=== PATIENT | female | born 1975 | race Caucasian/White ===

== ENCOUNTER 2023-12-06 19:02 | Emergency (ER) | payer BC, SELFPAY ==
[2023-12-06 19:06] VITALS: BP 125/99; PULSE 70; RESP 16; TEMP 36.7; O2SAT 99; BMI 22.1
--- NOTE | 2023-12-06 19:21 | ED.UPPEXIN1 ---
HPI - Extremity Injury (Upper) General Chief Complaint: Extremity Injury, Upper Stated Complaint: UE INJURY Time Seen by Provider: 12/06/23 19:19 Source: patient Mode of arrival: walk-in Limitations: no limitations History of Present Illness HPI narrative: carrying boxes and loss her balance . fell striking her right forearm on the corner of the door. Denies other injury. complains of pain. No associated numbness or weakness MD complaint: injury to: Reports right and forearm Related Data Allergies Allergy/AdvReac Type Severity Reaction Status Date / Time No Known Drug Allergies Allergy Verified 12/06/23 19:11 Review of Systems ROS Status of ROS 10 or more systems reviewed and unremarkable except as noted in history and below Exam Constitutional Vital Signs, click to edit/add: Last Vital Signs Temp 98.1 F 12/06/23 19:06 Pulse 70 12/06/23 19:06 Resp 16 12/06/23 19:06 BP 125/99 H 12/06/23 19:06 Pulse Ox 99 12/06/23 19:06 O2 Del Method Room Air 12/06/23 19:06 Common normals: no apparent distress, average body habitus, oriented x3, no limitations, healthy appearing, alert and well nourished [facility] Common normals: normocephalic and head/scalp atraumatic Eye Common normals: PERRL, EOMs intact bilaterally and conjunctivae normal Neck & C-Spine Common normals: full ROM Respiratory Common normals: normal respiratory effort, no retractions and no use of accessory muscles Cardio Common normals: S1 normal heart sound and S2 normal heart sound Extremity Other: focal swelling proximal R FA Neuro Common normals: oriented x3, CN's II-XII intact bilaterally, moves all extremities and no focal motor deficits Psych Appearance: grossly normal Course Vital Signs Vital signs: Vital Signs Temperature 98.1 F 12/06/23 19:06 Pulse Rate 70 12/06/23 19:06 Respiratory Rate 16 12/06/23 19:06 Blood Pressure 125/99 H 12/06/23 19:06 Pulse Oximetry 99 12/06/23 19:06 Oxygen Delivery Method Room Air 12/06/23 19:06 Temperature 98.1 F 12/06/23 19:06 Pulse Rate 70 12/06/23 19:06 Respiratory Rate 16 12/06/23 19:06 Blood Pressure 125/99 H 12/06/23 19:06 Pulse Oximetry 99 12/06/23 19:06 Oxygen Delivery Method Room Air 12/06/23 19:06 MDM - Extremity Injury (Upper) MDM Narrative Medical decision making narrative: patient fell forward striking her proximal right FA on the door. Presents with focal hematoma proximal right forearm near elbow. Elbow exam grossly normal but she complained of pain. Xray of forearm and elbow neg. Patient informed of the above and discharged home. Work note provided for [facility] Discharge Plan Discharge Stand Alone Forms: Portal Instructions Chief Complaint: Extremity Injury, Upper Clinical Impression: Contusion of forearm, right Patient Disposition: Home, Self-Care Instructions: Contusion in Adults (ED) Additional Instructions: continue ice and motrin or similar for pain. Follow up with your doctor in 2-3 days for recheck Referrals: Physician,Non-Staff, MD [Primary Care Provider] - 1 week
--- NOTE | 2023-12-06 19:24 | XR_ITS ---
The [place] [id number] Patient Name: CONNOR RUANO MRN: [id number] date: 1975 Sex: F Assigned Patient Location: ER Current Patient Location: ED.MAIN Accession/Order Number: [id number] Exam Date: 12/06/2023 19:30 Report Date: 12/06/2023 20:34 At the request of: NABOR HURTADO Procedure: XR elbow RT min 3V EXAM: XR elbow RT min 3V HISTORY: The patient is a 48-year-old female, injury COMPARISON: None. FINDINGS: The right elbow is radiographically negative with no evidence of fracture, dislocation, fat pad elevation, or other osseous or articular abnormalities XR/XR elbow RT min 3V IMPRESSION: Negative. Electronically authenticated by: GAGE MAK Date: 12/06/2023 20:34
--- NOTE | 2023-12-06 19:24 | XR_ITS ---
The [address] [address] Patient Name: CONNOR RUANO MRN: [id number] date: 1975 Sex: F Assigned Patient Location: ER Current Patient Location: ER Accession/Order Number: [id number] Exam Date: 12/06/2023 19:30 Report Date: 12/06/2023 20:35 At the request of: NABOR HURTADO Procedure: XR forearm RT 2V EXAM: XR forearm RT 2V HISTORY: The patient is a 48-year-old female, fall COMPARISON: None. FINDINGS: The right radius and ulna are radiographically negative with no evidence of fracture, cortical lucencies, or other osseous abnormalities. The wrist joint is grossly maintained. The lateral view demonstrates focal fullness of the soft tissues dorsal to the proximal ulna. XR/XR forearm RT 2V IMPRESSION: Negative right radius/ulna. Electronically authenticated by: GAGE MAK Date: 12/06/2023 20:35
[2023-12-06 20:45] VITALS: BP 130/84; PULSE 80; RESP 16; O2SAT 99
[2023-12-06] MEDS: IBUPROFEN 400 MG TABLET 800 MG PO (20:45)
== END 2023-12-06 20:48 | disposition home or self-care (01) ==
PROVIDERS: Emergency Provider Internal Medicine
DX: S50.11XA Contusion of right forearm, initial encounter (principal); W19.XXXA Unspecified fall, initial encounter
CPT/HCPCS: 73080; 73090; 99284

== ENCOUNTER 2023-12-12 10:03 | Outpatient (OUT) | payer BC, SELFPAY ==
--- NOTE | 2023-12-12 10:09 | XR_ITS ---
The [address] [address] Patient Name: CONNOR RUANO MRN: [id number] date: 1975 Sex: F Assigned Patient Location: [facility] Current Patient Location: [facility] Accession/Order Number: [id number] Exam Date: 12/12/2023 10:13 Report Date: 12/12/2023 11:04 At the request of: BILL CLEMENT Procedure: XR forearm RT 2V PROCEDURE: XR forearm RT 2V DATE: 12/12/2023 9:13 AM CDT COMPARISONS: 12/06/2023 CLINICAL INDICATION: Right Arm Injury S49.91XA FINDINGS: There is no evidence of fractures or other osseous abnormalities. XR/XR forearm RT 2V IMPRESSION: Right forearm radiographs show no evidence of abnormalities. Electronically authenticated by: MARI SOARES Date: 12/12/2023 11:04
--- NOTE | 2023-12-12 10:09 | XR_ITS ---
The [address] [address] Patient Name: CONNOR RUANO MRN: [id number] date: 1975 Sex: F Assigned Patient Location: [facility] Current Patient Location: [facility] Accession/Order Number: [id number] Exam Date: 12/12/2023 10:13 Report Date: 12/12/2023 11:05 At the request of: BILL CLEMENT Procedure: XR elbow RT min 3V PROCEDURE: XR elbow RT min 3V DATE: 12/12/2023 9:13 AM CDT COMPARISONS: None CLINICAL INDICATION: Right Arm Injury S49.91XA FINDINGS: There is no evidence of fractures or other osseous abnormalities. No evidence of right elbow joint effusion. XR/XR elbow RT min 3V IMPRESSION: Right elbow radiographs show no evidence of abnormalities. Electronically authenticated by: MARI SOARES Date: 12/12/2023 11:05
--- OUTSIDE RECORDS SUMMARY | 2023-12-12 10:14 | XMS_ITS | CCD ---
Author Name Unknown Address [facility] [address] [place] [id number] Organization [facility] Care Team Providers Care Fish Hatchery Man Name Role Phone Dianna Clement Primary Care Provider Fidencio Archibald Attending Provider DIANNA CLEMENT Primary Care Unavailable RADHA, DR AYERS Admitting Unavailable RADHA, DR AYERS Attending Unavailable RADHA, DR AYERS Consulting Unavailable ANDREUBPALMER REESE Consulting Unavailable RADHA, DR AYERS Procedure Practitioner Unavailab BRETT Medel Consulting Unavailable YANDEL CHÁVEZ Attending Unavailable YANDEL CHÁVEZ Admitting Unavailable [place], DR DARRICK Gonzalez Consulting Unavailable YANDEL CHÁVEZ Consulting Unavailable RADHA, DR AYERS Admitting Unavailable RADHA, DR AYERS Attending Unavailable RADHA, DR AYERS Consulting Unavailable RADHA, DR AYERS Admitting Unavailable RADHA, DR AYERS Attending Unavailable RADHA, DR AYERS Consulting Unavailable RADHA, DR AYERS Admitting Unavailable DIANNA CLEMENT Primary Care Unavailable RADHA, DR AYERS Attending Unavailable RADHA, DR AYERS Admitting Unavailable RADHA, DR AYERS Attending Unavailable RADHA, DR AYERS Consulting Unavailable Dianna Clement Unavailable Racquel CHILDREN'S PROGRAM COORDINATOR - CLAIM INSPECTORDianna Primary Care Provid er HELEN SOLIS Referring Unavailable DIANNA CLEMENT Primary Care Unavailable DIANNA CLEMENT Primary Care Unavailable HELEN SOLIS Admitting Unavailable HELEN SOLIS Attending Unavailable Medications Current Medications Medication Drug Class(es) Dates Sig (Normalized) Sig (Original) acetaminophen 325 mg oral tablet (3 sources) Start: 01-24-2023 acetaminophen (TYLENOL) tablet 650 mg take 1 tablet by maciel th every six hours as needed for pain acetaminophen (TYLENOL) 500 MG tablet Ta ke 1 tablet by mouth every 6 hours as needed for Pain 0 Suspended Tylenol Active acetaminophen 325 mg / HYDROcodone bitartrate 5 mg oral tablet (2 sources) Opioid Agonist Start: 01-24-2023 End: 01-29-2023 HYDROcodone-acetaminophen (NORCO) 5-325 MG per tablet Indications: S/P arthroscopy of left knee Take 1-2 tablets by mouth every 6 hours as needed for Pain for up to 5 days. Max Daily Amount: 8 tablets 30 tablet 0 01/24/2023 01/29/2023 Active Start: 01-24-2023 HYDROcodone-ac etaminophen (NORCO) 5-325 MG per tablet 1 tablet calcium chloride 0.0014 meq/ml / potassium chloride 0.004 meq/ml / sodium chloride 0.103 meq/ml / sodium lactate 0.028 meq/ml injectable solution (1 source) Start: 01-24-2023 lactated ringers IV soln infusion cyclobenzaprine hydrochloride 5 mg oral tablet (1 source) Muscle Relaxant Start: 10-22-2021 take 1 tablet by mouth every eight hours Cyclobenzaprine HCl 5 MG 1 tablet as needed Orally Three times a day for 10 days Sep, Active ergocalciferol 1.25 mg oral capsule (2 sources) Provitamin D2 Compound Start: 03-11-2020 take 1 capsule by mouth once Vitamin D (Ergocalciferol) 1.25 MG (35056 UT) 1 capsule Orally for 30 day(s) Mar, Active 2 ml fentaNYL 0.05 mg/ml injection (1 source) Opioid Agonist Start: 01-24-2023 fentaNYL (SUBLIMAZE) injection 50 mcg 24 hr ferrous sulfate 142 mg extended release oral tablet (2 sources) Start: 03-11-2020 take 1 tablet by mouth every twenty-fou r hours Slow Fe 142 (45 Fe) MG 1 tablet Orally Once a day for 30 day(s) Mar, Active Folinic-Plus 4-50-2 MG (1 source) Start: 03-11-2020 take 1 tablet by mouth in the morning Folinic-Plus 4-50-2 MG 1 tablet Orally in the morning for 30 days Feb, Active lidocaine 0.05 mg/mg medicated patch (1 source) Antiarrhythmic, Amide Local Anesthetic Lidocaine 5 % (Prior Auth#:[id number]) External for 15 Active methylPREDNISolone 4 mg oral tablet (1 source) Corticosteroid Start: 10-22-2021 methylPREDNISolone 4 MG as directed Orally Once a day for 6 days Sep, Active rOPINIRole 4 mg oral tablet (1 source) Nonergot Dopamine Agonist Start: 05-23-2020 take 1 tablet by mouth once daily at bedtime rOPINIRole HCl 4 MG 1 tablet 1 to 3 hours before bedtime Orally Once a day for 30 day(s) Apr, Active 5 ml sodium chloride 9 mg/ml injection (3 sources) Start: 01-24-2023 sodium chloride flush 0.9 % injection 5-40 mL Start: 01-24-2023 0.9 % sodium c hloride infusion Start: 01-24-2023 sodium chlorid e flush 0.9 % injection 5-40 mL Completed/Discontinued Medications Medication Drug Class(es) Dates Sig (Normalized) Sig (Original) ceFAZolin 2000 mg injection (1 source) Cephalosporin Antibacterial Start: 01-24-2023 End: 01-24-2023 ceFAZolin (ANCEF) 2000 mg in 0.9% sodium chloride 100 mL IVPB dimenhyDRINATE 50 mg oral tablet (1 source) Start: 01-24-2023 End: 01-24-2023 dimenhyDRINATE (DRAMAMINE) tablet 50 mg ibuprofen 200 mg oral capsule (1 source) Nonsteroidal Anti-inflammatory Drug take 1 capsule by mouth every six hours as needed for pain ibuprofen (ADVIL;MOTRIN) 200 MG CAPS capsule Take 1 capsule by mouth every 6 hours as needed for Pain 0 Suspended Problems Active Problems Problem Classification Problem Date Documented Date Episodic/Chronic Anxiety disorders (1 source) Anxiety disorder, unspecified; Translations: [ANXIETY DISORDER UNSPECIFIED] Onset: 2022 Chronic Benign neoplasm of uterus (1 source) Leiomyoma of uterus, unspecified; Translations: [LEIOMYOMA OF UTERUS UNSPECIFIED] Onset: 2022 Episodic Deficiency and other anemia (1 source) Iron deficiency anemia due to blood loss; Translations: [Iron deficiency anemia secondary to blood loss (chronic)] Chronic Menopausal disorders (3 sources) Menorrhagia; Translations: [Excessive bleeding in the premenopausal period] Onset: 10-22-2021 Resolved: 10-22-2021 Chronic Menstrual disorders (10 sources) Excessive and frequent menstruation with regular cycle; Translations: [Dysmenorrhea, unspecified] Onset: 07-01-2021 Chronic Osteoarthritis (1 source) Arthritis of right hip; Translations: [Unilateral primary osteoarthritis, right hip] Chronic Other aftercare (1 source) Other penitentiary (current) drug therapy; Translations: [OTH DIRECTOR OF INFECTION CONTROL CURRENT DRUG THERAPY] Onset: 2022 Episodic Other bone disease and musculoskeletal deformities (1 source) Juvenile osteochondrosis of lower extremity; Translations: [Juvenile osteochondrosis of head of femur [Xtsk-Gzlav-Kjrfeuz], right leg] Chronic Other bone disease and musculoskeletal deformities (1 source) 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], right leg Onset: 10-22-2021 Resolved: 10-22-2021 Chronic Other female genital disorders (1 source) Unspecified dyspareunia; Translations: [UNSPECIFIED DYSPAREUNIA] Onset: 2022 Chronic Other female genital disorders (1 source) Hypertrophy of uterus; Translations: [HYPERTROPHY OF UTERUS] Onset: 2022 Episodic Other hereditary and degenerative nervous system conditions (1 source) Restless legs syndrome; Translations: [RESTLESS LEGS SYNDROME] Onset: 2022 Chronic Other hereditary and degenerative nervous system conditions (1 source) Restless legs; Translations: [Restless legs syndrome] Chronic Other nervous system disorders (1 source) Other chronic pain; Translations: [OTHER CHRONIC PAIN] Onset: 2022 Chronic Other non-traumatic joint disorders (1 source) Pain in unspecified hip; Translations: [PAIN IN UNSPECIFIED HIP] Onset: 2022 Episodic Residual codes; unclassified (1 source) History of arthroscopy of knee joint; Translations: [Other specified postprocedural states] Episodic Residual codes; unclassified (1 source) Other specified postprocedural states; Translations: [Other specified postprocedural states] Onset: 01-24-2023 Episodic Substance-related disorders (1 source) Nicotine dependence, cigarettes, uncomplicated; Translations: [NICOTINE DEPEND CIGARETTES UNCOMP] Onset: 2022 Chronic Unclassified (1 source) CONTACT W/AND (SUSP) EXPOS COVID-19; Translations: [CONTACT W/AND (SUSP) EXPOS COVID-19] Onset: 01-01-2022 Past or Other Problems Problem Classification Problem Date Documented Da te Episodic/Chronic Nonspecific chest pain (1 source) Other chest pain Onset: 10-22-2021 Resolved: 10-22-2021 Episodic Spondylosis; intervertebral disc disorders; other back problems (2 sources) Acute back pain with sciatica; Translations: [Lumbago with sciatica, left side] Episodic Results Test Name Value Interpretation Reference Range Facility OPERATIVE REPORTon 3 OPERATIVE REPORT [address] [id number] OPERATIVE REPORT PATIENT NAME: BEENA RUANO : 1975 MED REC NO: [id number] ROOM: ACCOUNT NO: [id number] ADMIT DATE: 01/24/2023 PROVIDER: Helen Solis DATE OF PROCEDURE: 01/24/2023 PREOPERATIVE DIAGNOSES: 1. Torn medial meniscus. 2. Torn lateral meniscus. 3. Chondromalacia, left knee. POSTOPERATIVE DIAGNOSES: 1. Torn medial meniscus. 2. Torn lateral meniscus. 3. Chondromalacia, left knee. PROCEDURE PERFORMED: Arthroscopy of left knee with: 1. Partial medial meniscectomy. 2. Partial lateral meniscectomy. 3. Chondroplasty. SURGEON: Dr. Helen Solis. ANESTHESIA: General. DESCRIPTION OF PROCEDURE: The patient was brought into the operating room and placed in the supine position on the operating table. General anesthetic was administered. The patient's left lower extremity was prepped with ChloraPrep and draped in a sterile fashion. The patient had received Ancef. Tourniquet was inflated to 300 mmHg. Arthroscope was brought in through an anterolateral portal. Knee was distended with lactated Ringer's solution. Anteromedial portal was then created for instrumentation. The patient was noted to have a torn posterior portion of the medial meniscus and also had chondromalacia involving the weightbearing area of the medial femoral condyle and to a minor extent to the medial tibial plateau. Partial medial meniscectomy was then contoured out good clean contours obtained. The periphery of the meniscus was preserved. The patient had chondromalacia going down throughout about 50% of the weightbearing area of the medial femoral condyle and this was trimmed up appropriately. No full-thickness lesions were noted and some minor trimming was performed on the medial tibial plateau. Notch area examined. The ACL was intact. Lateral compartment and lateral femoral condyle was intact. There was some mild chondromalacia adjacent to the notch area on the lateral tibial plateau, which was easily trimmed up and the patient had morbid degenerative tear of the inner margin of the lateral meniscus. This was trimmed up going into about 20% of the inner margin of the lateral meniscus. Good clean contour was obtained. Patellofemoral joint was then examined. The patient had chondromalacia involving both the patellofemoral groove and the undersurface of patella, more towards the medial side. Chondroplasty was performed with a shaver. This went down through about 50% of thickness of the cartilage involving the patellofemoral groove and similarly went down through 50% of the cartilage involving mainly the central portion and medial facet of the patella. No full-thickness lesions were noted. Partial synovectomy was then carried out through the pouch area. The medial gutter was cleaned up. The arthroscope and shaver were then switched portals and the chondroplasty was completed of the patellofemoral joint and the lateral gutter was cleaned up appropriately. Knee joint was then thoroughly inspected. Knee was then drained. Portal sites were closed with 4-0 nylon interrupted simple sutures. Dressed with an Adaptic, fluff, ABD, Kerlix roll, and ABDIRAHMAN wrap from toe to groin. Tourniquet was released. Toes pinked immediately. The patient was transferred to Recovery in a stable condition. Blood loss minimal. Bussey for discomfort. Return to the office in two weeks. HELEN SOLIS [id number] Doc#: [id number] CC: Normal [facility] Basic Metabolic Panelon 04-2 Anion gap [Moles/Vol] 9 mmol/L 9 - 17 mmol/L [facility] Calcium [Mass/Vol] 9.8 mg/dL 8.6 - 10. 4 mg/dL [facility] Chloride [Moles/Vol] 103 mmol/L 98 - 10 7 mmol/L [facility] CO2 [Moles/Vol] 25 mmol/L 20 - 31 mmol/L [facility] Creatinine [Mass/Vol] 0.86 mg/dL 0.50 - 0.90 mg/dL [facility] GFR/1.73 sq M.predicted MDRD (S/P/Bld) [Vol rate/Area] - PINF [facility] Comment on above: These results are not intended for use in patients <18 years of age. eGFR results are calculated without a race factor using the 2020 CKD-EPI equation. Careful clinical correlation is recommended, particularly when comparing to results calculated using previous equations. The CKD-EPI equation is less accurate in patients with extremes of muscle mass, extra-renal metabolism of creatine, excessive creatine ingestion, or following therapy that affects renal tubular secretion. Glucose [Mass/Vol] 100 mg/dL High 70 - 99 mg/dL [facility] Interpretation and review of laboratory results Abnormal [facility] Potassium [Moles/Vol] 4.3 mmol/L 3.7 - 5.3 mmol/L [facility] Sodium [Moles/Vol] 137 mmol/L 135 - 144 mmol/L [facility] Urea nitrogen [Mass/Vol] 18 mg/dL 6 - 20 mg/dL [facility] Urea nitrogen/Creatinine (Bld) [Mass ratio] 21 High 9 - 20 [facility] Basic Metabolic Profon 01-13 Anion gap [Moles/Vol] 9 mmol/L Normal 9-17 [facility] Comment on above: Performed By: #### B LADAN, CDP #### [facility] [address] [place] [address] Temporary Receptionist: Darrick Amaya MD BUN/CRE Ratio 21 High 9-20 [facility] Comment on above: Performed By: #### B LADAN, CDP #### [facility] [address] [place] [address] Temporary Receptionist: Darrick Amaya MD Calcium [Mass/Vol] 9.8 mg/dL Normal 8.6-10.4 [facility] Comment on above: Performed By: #### B LADAN, CDP #### [facility] [address] [place] [address] Temporary Receptionist: Darrick Amaya MD Chloride [Moles/Vol] 103 mmol/L Normal 98-107 [facility] Comment on above: Performed By: #### B LADAN, CDP #### [facility] [address] [place], [place] [id number] Temporary Receptionist: Darrick Amaya MD CO2 [Moles/Vol] 25 mmol/L Normal 20-31 [facility] Comment on above: Performed By: #### B LADAN, CDP #### [facility] [address] [place] [address] Temporary Receptionist: Darrick Amaya MD Creatinine [Mass/Vol] 0.86 mg/dL Normal 0.50-0.90 [facility] Comment on above: Performed By: #### B LADAN, CDP #### [facility] [address] [place] [address] Temporary Receptionist: Darrick Amaya MD GFR/1.73 sq M.predicted among non-blacks MDRD (S/P/Bld) [Vol rate/Area] mL/min/{1.73_m2} Normal >60 [facility] Comment on above: Result Comment: These results are not intended for use in patients <18 years of age. eGFR results are calculated without a race factor using the 2020 CKD-EPI equation. Careful clinical correlation is recommended, particularly when comparing to results calculated using previous equations. The CKD-EPI equation is less accurate in patients with extremes of muscle mass, extra-renal metabolism of creatine, excessive creatine ingestion, or following therapy that affects renal tubular secretion. Performed By: #### B LADAN, CDP #### [facility] [address] [place] [address] Temporary Receptionist: Darrick Amaya MD Glucose [Mass/Vol] 100 mg/dL High 70-99 [facility] Comment on above: Performed By: #### B MP, CDP #### [facility] [address] [place], [place] [id number] Temporary Receptionist: Darrick Amaya MD Potassium [Moles/Vol] 4.3 mmol/L Normal 3.7-5.3 [facility] Comment on above: Performed By: #### B LADAN, CDP #### [facility] [address] [place], [place] [id number] Temporary Receptionist: Darrick Amaya MD Sodium [Moles/Vol] 137 mmol/L Normal 135-144 [facility] Comment on above: Performed By: #### B LADAN, CDP #### [facility] [address] [place], [place] [id number] Temporary Receptionist: Darrick Amaya MD Urea nitrogen [Mass/Vol] 18 mg/dL Normal 6-20 [facility] Comment on above: Performed By: #### B LADAN, CDP #### [facility] [address] [place], [place] [id number] Temporary Receptionist: Darrick Amaya MD CBC with Auto Differentialon 01-13-2023 Absolute Eos # 0.[address] [facility] Absolute Immature Granulocyte [facility] Absolute Lymph # 1.[address] [facility] Absolute [place] # 0.44 [facility] Basophils (Bld) [#/Vol] 0.04 10*3/uL [facility] Basophils/100 WBC (Bld) 1 % 0 - 2 % [facility] Eosinophils/100 WBC (Bld) 2 % 1 - 4 % [facility] Hematocrit (Bld) [Volume fraction] 44.3 % 36.3 - 47.1 % [facility] Hemoglobin (Bld) [Mass/Vol] 15.0 g/dL 11.9 - 15.1 g/dL [facility] Immature granulocytes/100 WBC (Bld) 0 % 0 [facility] Lymphocytes/100 WBC (Bld) 30 % 24 - 43 % [facility] MCH (RBC) [Entitic mass] 29.9 pg 25.2 - 33.5 pg [facility] MCHC (RBC) [Mass/Vol] 33.9 g/dL 28.4 - 34.8 g/dL [facility] MCV (RBC) [Entitic vol] 88.2 fL 82.6 - 102.9 fL [facility] Monocytes/100 WBC (Bld) 8 % 3 - 12 % [facility] NRBC Automated 0.0 0.0 per 100 WBC [facility] Platelet distribution width (Bld) [Ratio] 12.5 % 11.8 - 14.4 % [facility] Platelet mean volume (Bld) [Entitic vol] 11.6 fL 8.1 - 13.5 fL [facility] Platelets (Bld) [#/Vol] 170 10*3/uL [facility] RBC (Bld) [#/Vol] 5.02 10*6/uL 3.95 - 5.1 1 m/uL [facility] Segmented neutrophils/100 WBC (Bld) 59 % 36 - 65 % [facility] Segs Absolute 3.23 [facility] WBC (Bld) [#/Vol] 5.5 10*3/uL [facility] CBC with Diffon 01-13-2023 Abs. Basophil 0.04 k/uL Normal 0.00-0.20 [facility] Comment on above: Performed By: #### B LADAN, CDP #### [facility] [address] [place] [address] Temporary Receptionist: Darrick Amaya MD Abs.Imm.Granulocyte <0.03 Normal 0.00-0.30 [facility] Comment on above: Performed By: #### B LADAN, CDP #### [facility] [address] [place] [address] Temporary Receptionist: Darrick Amaya MD Abs.Neutrophil (Seg) 3.23 k/uL Normal 1.50-8.10 [facility] Comment on above: Performed By: #### B MP, CDP #### [facility] [address] [place], [facility] Temporary Receptionist: Darrick Amaya MD Basophils/100 WBC (Bld) 1 % Normal 0-2 [facility] Comment on above: Performed By: #### B MP, CDP #### [facility] [address] [place], [facility] Temporary Receptionist: Darrick Amaya MD Eosinophils (Bld) [#/Vol] 0.10 10*3/uL Normal 0.00-0.44 [facility] Comment on above: Performed By: #### B MP, CDP #### [address] [place], [facility] Temporary Receptionist: Darrick Amaya MD Eosinophils/100 WBC (Bld) 2 % Normal 1-4 [facility] Comment on above: Performed By: #### B MP, CDP #### [address] [place], [facility] Temporary Receptionist: Darrick Amaya MD Erythrocyte distribution width (RBC) [Ratio] 12.5 % Normal 11.8-14.4 [facility] Comment on above: Performed By: #### B MP, CDP #### [address] [place], [facility] Temporary Receptionist: Darrick Amaya MD Hematocrit (Bld) [Volume fraction] 44.3 % Normal 36.3-47.1 [facility] Comment on above: Performed By: #### B MP, CDP #### [address] [place], [facility] Temporary Receptionist: Darrick Amaya MD Hemoglobin (Bld) [Mass/Vol] 15.0 g/dL Normal 11.9-15.1 [facility] Comment on above: Performed By: #### B MP, CDP #### [address] [place], [place] [id number] Temporary Receptionist: Darrick Amaya MD Immature granulocytes/100 WBC (Bld) 0 % Normal 0 [facility] Comment on above: Performed By: #### B MP, CDP #### [address] [place], [place] [id number] Temporary Receptionist: Darrick Amaya MD Lymphocytes (Bld) [#/Vol] 1.64 10*3/uL Normal 1.10-3.70 [facility] Comment on above: Performed By: #### B LADAN, CDP #### [address] [place], [place] [id number] Temporary Receptionist: Darrick Amyaa MD Lymphocytes/100 WBC (Bld) 30 % Normal 24-43 [facility] Comment on above: Performed By: #### B LADAN, CDP #### [address] [place], [place] [id number] Temporary Receptionist: Darrick Amaya MD MCH (RBC) [Entitic mass] 29.9 pg Normal 25.2-33.5 [facility] Comment on above: Performed By: #### B LADAN, CDP #### [address] [place], [place] [id number] Temporary Receptionist: Darrick Amaya MD MCHC (RBC) [Mass/Vol] 33.9 g/dL Normal 28.4-34.8 [facility] Comment on above: Performed By: #### B MP, CDP #### [address] [place], [place] [id number] Temporary Receptionist: Darrick Amaya MD MCV (RBC) [Entitic vol] 88.2 fL Normal 82.6-102.9 [facility] Comment on above: Performed By: #### B LADAN, CDP #### [address] [place], [place] [id number] Temporary Receptionist: Darrick Amaya MD Monocytes (Bld) [#/Vol] 0.44 10*3/uL Normal 0.10-1.20 [facility] Comment on above: Performed By: #### B LADAN, CDP #### [facility] [address] [place], [place] [id number] Temporary Receptionist: Darrick Amaya MD Monocytes/100 WBC (Bld) 8 % Normal 3-12 [facility] Comment on above: Performed By: #### B LADAN, CDP #### [facility] [address] [place], [place] [id number] Temporary Receptionist: Darrick Amaya MD Neutrophil (Seg) 59 % Normal 36-65 [facility] Comment on above: Performed By: #### B LADAN, CDP #### [facility] [address] [place], [place] [id number] Temporary Receptionist: Darrick Amaya MD NRBC Automated 0.0 per 100 WBC Normal 0.0 [facility] Comment on above: Performed By: #### B LADAN, CDP #### [facility] [address] [place], [place] [id number] Temporary Receptionist: Darrick Amaya MD Platelet mean volume (Bld) [Entitic vol] 11.6 fL Normal 8.1-13.5 [facility] Comment on above: Performed By: #### B LADAN, CDP #### [facility] [address] [place] [address] [place] [address] Temporary Receptionist: Darrick Amaya MD Platelets (Bld) [#/Vol] 170 10*3/uL Normal 138-453 [facility] Comment on above: Performed By: #### B LADAN, CDP #### [facility] [address] [place] [address] Temporary Receptionist: Darrick Amaya MD RBC (Bld) [#/Vol] 5.02 10*6/uL Normal 3.95-5.11 [facility] Comment on above: Performed By: #### B MP, CDP #### [facility] [address] [place] [address] Temporary Receptionist: Darrick Amaya MD WBC (Bld) [#/Vol] 5.5 10*3/uL Normal 3.5-11.3 [facility] Comment on above: Performed By: #### B MP, CDP #### [facility] [address] [place] [address] Temporary Receptionist: Darrick Amaya MD BUNon 01-02-2022 Urea nitrogen [Mass/Vol] 12.0 mg/dL Normal 7.0-18.0 [facility] Comment on above: Performed By: #### B UN, CREA #### [facility] [address] [place] [address] Dr. Goran Ventura CBC AUTO DIFFon 01-02-2022 BASO # 0.0 103/ul Normal 0.0-0.1 [facility] Comment on above: Performed By: #### C BC #### [facility] [address] [place] [address] Dr. Goran Ventura Basophils/100 WBC (Bld) 0.2 % Normal 0.2-2.0 [facility] Comment on above: Performed By: #### C BC #### [facility] [address] [place] [address] Dr. Goran Ventura EO # 0.0 103/ul Normal 0.0-0.7 [facility] Comment on above: Performed By: #### C BC #### [facility] [address] [place] [address] Dr. Goran Ventura Eosinophils/100 WBC (Bld) 0.2 % Critically low 0.9-7.0 [facility] Comment on above: Performed By: #### C BC #### [facility] [address] [place] [address] Dr. Goran Ventura Erythrocyte distribution width (RBC) [Ratio] 13.2 % Normal 11.0-15.0 [facility] Comment on above: Performed By: #### C BC #### [facility] [address] [place] [address] Dr. Goran Ventura Hematocrit (Bld) [Volume fraction] 38.1 % Normal 36.0-48.0 [facility] Comment on above: Performed By: #### C BC #### [facility] [address] [address] [address] Goran Ventura Hemoglobin (Bld) [Mass/Vol] 12.7 g/dL Normal 12.0-16.0 [facility] Comment on above: Performed By: #### C BC #### [facility] [address] [place] [address] Dr. Goran Ventura IG # 0.07 10e3/ul Critically high 0.00-0.03 [facility] Comment on above: Performed By: #### C BC #### [facility] [address] [place] [address] Dr. Goran Ventura IG % 0.5 % Normal 0.0-0.5 [facility] Comment on above: Performed By: #### C BC #### [facility] [address] [place] [address] Dr. Goran Ventura LYMPH # 1.7 103/ul Normal 1.2-3.8 [facility] Comment on above: Performed By: #### C BC #### [facility] [address] [place] [address] Dr. Goran Ventura Lymphocytes/100 WBC (Bld) 12.2 % Critically low 20.5-60.0 [facility] Comment on above: Performed By: #### C BC #### [facility] [address] [place] [address] Dr. Goran Ventura MANUAL DIFF REQ NO Normal [facility] Comment on above: Performed By: #### C BC #### [facility] [address] [place] [address] Dr. Goran Ventura MCH (RBC) [Entitic mass] 29.5 pg Normal 26.7-34.0 [facility] Comment on above: Performed By: #### C BC #### [facility] [address] [address] [address] Goran Ventura MCHC (RBC) [Mass/Vol] 33.3 g/dL Normal 29.9-35.2 [facility] Comment on above: Performed By: #### C BC #### [facility] [address] [place], [place] [id number] Dr. Goran Ventura MCV (RBC) [Entitic vol] 88.6 fL Normal 81.0-99.0 [facility] Comment on above: Performed By: #### C BC #### [facility] [address] [address] [address] Goran Ventura MONO # 1.1 103/ul Critically high 0.3-0.8 [facility] Comment on above: Performed By: #### C BC #### [facility] [address] [place] [address] Dr. Goran Ventura Monocytes/100 WBC (Bld) 8.2 % Normal 1.7-12.0 [facility] Comment on above: Performed By: #### C BC #### [facility] [address] [place] [address] Dr. Goran Ventura NEUT # 10.7 103/ul Critically high 1.4-6.5 [facility] Comment on above: Performed By: #### C BC #### [facility] [address] [place], [place] [id number] Dr. Goran Ventura Neutrophils/100 WBC (Bld) 78.7 % Critically high 43.0-75.0 [facility] Comment on above: Performed By: #### C BC #### [facility] [address] [place], [place] [id number] Dr. Goran Ventura Platelet mean volume (Bld) [Entitic vol] 11.3 fL Normal 9.5-13.5 [facility] Comment on above: Performed By: #### C BC #### [facility] [address] [place] [address] Dr. Goran Ventura PLT 181 103/ul Normal 150-450 [facility] Comment on above: Performed By: #### C BC #### [facility] [address] [place] [address] Dr. Goran Ventura RBC 4.30 106/ul Normal 4.20-5.40 [facility] Comment on above: Performed By: #### C BC #### [facility] [address] [place] [address] Dr. Goran Ventura WBC 13.7 103/ul Critically high 4.0-11.0 [facility] Comment on above: Performed By: #### C BC #### [facility] [address] [place] [address] Dr. Goran Ventura CREATININEon 01-02-2022 Creatinine [Mass/Vol] 1.06 mg/dL Critically high 0.52-1.04 [facility] Comment on above: Performed By: #### B ABDIEL, CREA #### [facility] [address] [place] [address] Dr. Goran Ventura EGFR-AF BARBADIAN >60 Normal >=60 [facility] Comment on above: Performed By: #### B UN, CREA #### [facility] [address] [place] [address] Dr. Goran Ventura EGFR-NON AF BARBADIAN 56 mL/min/1.73m2 Critically low >=60 [facility] Comment on above: Performed By: #### B UN, CREA #### [facility] [address] [place] [address] Dr. Goran Ventura CBC AUTO DIFFon 01-01-2022 BASO # 0.0 103/ul Normal 0.0-0.1 [facility] Comment on above: Performed By: #### C BC #### [facility] [address] [place] [address] Dr. Goran Ventura Basophils/100 WBC (Bld) 0.4 % Normal 0.2-2.0 [facility] Comment on above: Performed By: #### C BC #### [facility] [address] [place] [address] Dr. Goran Ventura EO # 0.1 103/ul Normal 0.0-0.7 [facility] Comment on above: Performed By: #### C BC #### [facility] [address] [place] [address] Dr. Goran Ventura Eosinophils/100 WBC (Bld) 2.9 % Normal 0.9-7.0 [facility] Comment on above: Performed By: #### C BC #### [facility] [address] [place] [address] Dr. Goran Ventura Erythrocyte distribution width (RBC) [Ratio] 12.9 % Normal 11.0-15.0 [facility] Comment on above: Performed By: #### C BC #### [facility] [address] [place] [address] Dr. Goran Ventura Hematocrit (Bld) [Volume fraction] 43.5 % Normal 36.0-48.0 [facility] Comment on above: Performed By: #### C BC #### [facility] [address] [place] [address] Dr. Goran Ventura Hemoglobin (Bld) [Mass/Vol] 14.7 g/dL Normal 12.0-16.0 [facility] Comment on above: Performed By: #### C BC #### [facility] [address] [place] [address] Dr. Goran Ventura IG # 0.00 10e3/ul Normal 0.00-0.03 [facility] Comment on above: Performed By: #### C BC #### [facility] [address] [place] [address] Dr. Goran Ventura IG % 0.0 % Normal 0.0-0.5 [facility] Comment on above: Performed By: #### C BC #### [facility] [address] [place] [address] Dr. Goran Ventura LYMPH # 1.4 103/ul Normal 1.2-3.8 [facility] Comment on above: Performed By: #### C BC #### [facility] [address] [place] [address] Dr. Goran Ventura Lymphocytes/100 WBC (Bld) 29.9 % Normal 20.5-60.0 [facility] Comment on above: Performed By: #### C BC #### [facility] [address] [place] [address] Dr. Goran Ventura MANUAL DIFF REQ NO Normal [facility] Comment on above: Performed By: #### C BC #### [facility] [address] [place] [address] Dr. Goran Ventura MCH (RBC) [Entitic mass] 29.2 pg Normal 26.7-34.0 [facility] Comment on above: Performed By: #### C BC #### [facility] [address] [place] [address] Dr. Goran Ventura MCHC (RBC) [Mass/Vol] 33.8 g/dL Normal 29.9-35.2 [facility] Comment on above: Performed By: #### C BC #### [facility] [address] [place] [address] Dr. Goran Ventura MCV (RBC) [Entitic vol] 86.3 fL Normal 81.0-99.0 [facility] Comment on above: Performed By: #### C BC #### [facility] [address] [place] [address] Dr. Goran Ventura MONO # 0.5 103/ul Normal 0.3-0.8 [facility] Comment on above: Performed By: #### C BC #### [facility] [address] [place] [address] Dr. Goran Ventura Monocytes/100 WBC (Bld) 11.1 % Normal 1.7-12.0 [facility] Comment on above: Performed By: #### C BC #### [facility] [address] [place] [address] Dr. Goran Ventura NEUT # 2.5 103/ul Normal 1.4-6.5 [facility] Comment on above: Performed By: #### C BC #### [facility] [address] [place] [address] Dr. Goran Ventura Neutrophils/100 WBC (Bld) 55.7 % Normal 43.0-75.0 [facility] Comment on above: Performed By: #### C BC #### [facility] [address] [place] [address] Dr. Goran Ventura Platelet mean volume (Bld) [Entitic vol] 10.6 fL Normal 9.5-13.5 [facility] Comment on above: Performed By: #### C BC #### [facility] [address] [place] [address] Dr. Goran Ventura PLT 158 103/ul Normal 150-450 [facility] Comment on above: Performed By: #### C BC #### [facility] [address] [place] [address] Dr. Goran Ventura RBC 5.04 106/ul Normal 4.20-5.40 [facility] Comment on above: Performed By: #### C BC #### [facility] [address] [place] [address] Dr. Goran Ventura WBC 4.5 103/ul Normal 4.0-11.0 [facility] Comment on above: Performed By: #### C BC #### [facility] [address] [place] [address] Dr. Goran Ventura PREG QUANT HCGon 01-01-2022 HCG QUANT <1 Normal [facility] Comment on above: Performed By: #### P REGQNT #### [facility] [address] [place] [address] Dr. Goran Ventura HCG RANGE SEE BELOW Normal [facility] Comment on above: Result Comment: 0-1 WEEK 40-300 1-2 WEEKS 100-1,000 2-3 WEEKS 500-6,000 3-4 WEEKS 5,000-200,000 1-2 MONTHS 10,000-100,000 2-3 MONTHS 3,000-50,000 2ND TRIMESTER 1,000-50,000 3RD TRIMESTER Performed By: #### P REGQNT #### [facility] [address] [place] [address] Dr. Goran Ventura Covid-19 PCR ([facility])on SARS-CoV-2 (COVID-19) RNA RAFI+probe Ql (Unsp spec) Not detected Normal NOT DETECTED [facility] Comment on above: Result Comment: This test is not yet approved or cleared by the [place] FDA. When there are no FDA-approved or cleared tests available, and other criteria are met, FDA can make tests available under an emergency access mechanism called an Emergency Use Authorization (EUA). The EUA for this test is supported by the Pharmacy Buyer of Health and Human Service's (HHS's) declaration that circumstances exist to justify the emergency use of in vitro diagnostics for the detection and/or diagnosis of the virus that causes COVID-19. This EUA will remain in effect (meaning this test can be used) for the duration of the COVID-19 declaration justifying emergency of IVDs, unless it is terminated or revoked by FDA (after which the test may no longer be used). When diagnostic testing is negative, the possibility of a false negative should be considered in the context of a patient's recent exposures and the presence of clinical signs and symptoms consistent with SARS-CoV-2. Performed By: #### C VDTBH #### [facility] [address] [address] [address] Goran Ventura TYPE AND SCREENon 12-29-2021 TYPE AND SCREEN Negative Normal [facility] Comment on above: Performed By: #### T NS #### [facility] [address] [address] [address] Goran Ventura Covid-19 PCR ([facility])on 10-27 SARS-CoV-2 (COVID-19) RNA RAFI+probe Ql (Unsp spec) Not detected Normal NOT DETECTED [facility] Comment on above: Result Comment: This test is not yet approved or cleared by the [place] FDA. When there are no FDA-approved or cleared tests available, and other criteria are met, FDA can make tests available under an emergency access mechanism called an Emergency Use Authorization (EUA). The EUA for this test is supported by the [place] of Health and Human Service's (HHS's) declaration that circumstances exist to justify the emergency use of in vitro diagnostics for the detection and/or diagnosis of the virus that causes COVID-19. This EUA will remain in effect (meaning this test can be used) for the duration of the COVID-19 declaration justifying emergency of IVDs, unless it is terminated or revoked by FDA (after which the test may no longer be used). When diagnostic testing is negative, the possibility of a false negative should be considered in the context of a patient's recent exposures and the presence of clinical signs and symptoms consistent with SARS-CoV-2. Performed By: #### C VDTBH #### [facility] [address] [place] [address] Dr. Goran Ventura TYPE AND SCREENon 11-10-2021 TYPE AND SCREEN Negative Normal [facility] Comment on above: Performed By: #### T NS #### [facility] [address] [place] [address] Dr. Goran Ventura VAGINITIS/VAGINOSIS DNA PROB James 10-21-2021 Cathy species Negative Normal Negative [facility] Comment on above: Performed By: #### V AGINT #### [facility] [address] [place] [address] Dr. Goran Ventura Gardnerella vaginalis Negative Normal Negative [facility] Comment on above: Performed By: #### V AGINT #### [facility] [address] [place] [address] Dr. Goran Ventura Trichomonas vaginalis Negative Normal Negative [facility] Comment on above: Performed By: #### V AGINT #### [facility] [address] [place] [address] Dr. Goran Ventura US PELVISon 07-01-2021 US PELVIS EXAMINATION: US PELVIS HISTORY: Irregular periods COMPARISON: No relevant comparison available. FINDINGS: The uterus is enlarged in size heterogeneous in echotexture measuring 10.6 x 7.0 x 8.8 cm. Large anterior heterogeneous myometrial mass measuring 7.1 x 6.7 x 6.0 cm deforming the endometrial cavity. The endometrium measures 5 mm, normal. The right ovary is normal in size, contour and echotexture measuring 3.6 x 2.5 x 2.3 cm. Normal resistive index of 0.63. The left ovary is normal in size, contour and echotexture measuring 2.7 x 1.7 x 1.1 cm. Normal resistive index of 0.48. IMPRESSION: Enlarged heterogeneous lobular uterus containing anterior 7.1 cm myometrial mass. Fibroids are favored Electronically authenticated by: DARRICK MILLER Date: 2021-07-01 14:23 Normal [facility] XR knee RT 2Von 01-14-2021 XR knee RT 2V [facility] [place] [address] [place] [address] XRay Report Signed Patient: Beena Ruano MR#: [id number] : 1975 Acct:[id number] Age/Sex: 46 / F ADM Date: 01/14/21 Loc: [facility] Room: Type: [facility] CLI Attending Dr: Fidencio Archibald MD Ordering Provider: Fidencio Archibald MD Date of Service: 01/14/21 XR/XR knee RT 2V: Acute pain of right knee ([id number]) XR/XR hip RT min 2V(w/wo pelvis)*: Right hip pain ([id number]) XR/XR lumbar spine AP/LAT/FLX/EXT: M25.561, M25.551 Copies to: Fidencio Archibald MD CLINICAL DATA: Right lateral hip pain that radiates down the leg. History of the right femoral satnam as a child that was removed. RIGHT HIP WITH AP PELVIS - 3 views COMPARISON: None available AP view of the pelvis as well as AP and frog-lateral views of the right hip were obtained. No acute fracture or dislocation is identified. There is loss of the hip joint space on the right. There is flattening of femoral head with subchondral sclerosis and cystic change. There is also sclerosis and subchondral cysts at the superior acetabulum. There is flattening of the acetabulum. There is question as to whether not there could be old hip dysplasia. There are no significant findings at the left hip. No soft tissue abnormalities are present. XR/XR hip RT min 2V(w/wo pelvis)* IMPRESSION: ADVANCED DEGENERATIVE DISEASE AT THE RIGHT HIP WITH QUESTION OF UNDERLYING CHRONIC DYSPLASIA. LUMBAR SPINE WITH FLEXION-EXTENSION VIEWS - 4 views COMPARISON: None Standing AP as well as lateral views in neutral, flexion and extension were obtained. There are 6 nonrib-bearing lumbar type vertebra. 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 There is minimal retrolisthesis of L1 on L2 and L2 on L3. Alignment does not change significantly with flexion or extension. There is concavity at the anterior superior endplate of L1. This might relate to a Schmorl's node. The disc spaces are maintained. There is minor lower lumbar facet sclerosis. The SI joints are intact. No paraspinal soft tissue abnormalities are present. IMPRESSION: POSSIBLE L1 SCHMORL'S NODE. MINIMAL DEGENERATIVE CHANGE. NO OTHER ACUTE BONY FINDINGS. RIGHT KNEE - 2 views COMPARISON: None AP and lateral standing views were obtained. No fracture or dislocation is identified. There is no disproportionate joint space narrowing or degenerative change. There is no knee effusion or soft tissue swelling. IMPRESSION: NO ACUTE BONY FINDINGS. Impression dictated by: Kiersten Green M.D.01/14/2021 10:46 AM Dictation Location: [place] [address] Transcribed By: [facility] 01/14/21 1046 Dictated By: Kiersten Green MD 01/14/21 1039 Signed By: 01/14/21 1046 [facility] Emergency Documentationon Emergency Documentation [address] [address] Emergency Department Note Signed PRELIMINARY DRAFT REPORT UNTIL ELECTRONICALLY SIGNED PATIENT: Beena Ruano MR#: [id number] : 1975 AGE/SEX: 44 / F ADMITTED: 05/01/19 OUTSIDE LOCN: LOCATION: EMEROOARM ATTENDING: cc: PCP NO; Disposition Clinical Impression: Cat scratch Cat bite Qualifiers: Encounter type: initial encounter Qualified Code(s): W55.01XA - Bitten by cat, initial encounter Disposition: Home, Self-Care Condition: Good Instructions: Animal Bite (ED) Reasons to Return/Additional Instructions: 1. Please call your primary care provider to schedule an appointment for reevaluation in 2-4 days for re-evaluation of your wound. (If you are unable to follow up with your primary care provider, you can return to this emergency department.) 2. Return to Emergency Department with any drainage, discharge, pus, worsening redness, red streaks from the wounds, swelling or bumps under your arms, fevers, worsening pain, difficulty moving the area around the wound, worsening symptoms or any new concerns. 3. Take good care of your wound to help healing and prevent infection: Keep the wound and bandaged for the next 24 hours. Apply bacitracin or neosporin. Change the bandage daily or whenever it becomes wet or soiled. Do not soak or submerge the wound (avoid bathtubs, dishwater, hot tubs, swimming). Prescriptions: Amoxicillin/Clavulan ate [Augmentin] 875 mg PO BIDWM 7 Days tablet Referrals: NONE,PCP [Primary Care Provider] - Forms: ED Satisfaction Letter Time of Disposition: 23:04 Animal Bite HPI - General Chief Complaint: ED Animal Bite Stated Complaint: L thumb cat bite Time Seen by Provider: 05/01/19 20:33 Source: patient Limitations: no limitations Nursing Notes Reviewed: Yes Vital Signs Reviewed: Yes - History of Present Illness HPI Narrative: 44-year-old right-hand dominant female presents with injury to her left hand. She states that she was attempting to assist with the straight catheter when it had bit and scratched her multiple times on the left hand and right forearm. She states that the cat was healthy in appearance, and was protecting concerns. She denies any numbness tingling weakness, recent illness, or immune compromised state. Tetanus status is unknown. Pt Subjective Complaint: animal bite - Related Data Previous Rx's Medication Instructions Recorded Amoxicillin/Clavulan ate [Augmentin] 875 mg PO BIDWM 7 Days tablet 05/01/19 Allergies Allergy/AdvReac Type Severity Reaction Status Date / Time No Known Allergies Allergy Verified 05/01/19 19:51 Review of Systems: All systems ED: reviewed and negative except as stated. Constitutional: Denies: fever, chills ENT ED: Denies: throat pain Cardiovascular: Denies: chest pain, palpitations Respiratory: Denies: dyspnea, wheezes Gastrointestinal: Denies: nausea, vomiting Musculoskeletal: Denies: back pain, neck pain Integumentary: Denies: rash Neurological: Denies: headache, weakness Endocrine: Denies: fatigue Hematological/Lympha tic: Denies: easy bleeding Allergic/Immunologic : Denies: facial swelling All systems ED: reviewed and negative except as stated. Review of Systems: As Per HPI Past Medical History - Past Medical History Medical history: Reports: no medical history Psychiatric history: Reports: no psych history - Social History Smoking Status: Current every day smoker Smokeless Tobacco Status: No Alcohol use: Reports: none Drug use: Reports: none Physical Exam - General Limitations: no limitations General appearance: alert, in no apparent distress - Head Head exam: atraumatic, normocephalic - Eye Eye exam: Present: normal appearance, EOMI - ENT ENT exam: mucous membranes moist - Neck Neck exam: Present: full ROM - Chest Chest inspection: Present: symmetric chest wall rise - Respiratory Respiratory exam: Absent: respiratory distress - Cardiovascular Cardiovascular exam: Present: regular rate - Extremities Exam Extremities exam: Present: full ROM, normal capillary refill - Expanded Upper Extremity Exam Forearm/Wrist exam: Present: abrasion (Right forearm) Hand exam: Present: abrasion (Left forearm), laceration (Left thumb) Neuromotor exam: Normal: wrist extension, thumb opposition, thumb IP flexion, thumb adduction, fingers 2-5 abduction Neurosensory exam: Normal: 2-point discrimination Hand tendon exam: Normal: flexor digitorum profundus (location), flexor digitorum superficialis (location), extensor tendon (location) Vascular exam: Normal: capillary refill - Back Exam Back exam: Present: full ROM - Neurological Exam Neurological exam: Present: alert - Psychiatric Psychiatric exam: Present: normal affect, normal mood - Skin Skin exam: Present: warm, dry, intact, normal color. Absent: rash, cyanosis, diaphoresis Course Vital Signs Temperature 98.1 F 05/01/19 19:51 Pulse Rate 76 05/01/19 19:51 Respiratory Rate 18 05/01/19 19:51 Blood Pressure 124/78 05/01/19 19:51 O2 Sat by Pulse Oximetry 100 05/01/19 19:51 Temperature 98.1 F 05/01/19 19:51 Pulse Rate 76 05/01/19 19:51 Respiratory Rate 18 05/01/19 19:51 Blood Pressure 124/78 05/01/19 19:51 O2 Sat by Pulse Oximetry 100 05/01/19 19:51 Oxygen Delivery Oxygen Delivery Room Air Animal Bite - MDM Narrative Medical decision making narrative: 44-year-old female presents with cat bite and cat scratches. This was a current stray that she has been noticing racing kittens it appeared to be in good health. Did discuss need for rabies vaccine insensate swelling. She is declined this. I did advise for her to monitor the catheter to warrant unit for observation. Patient's tetanus was up-to-date here and she was given a dose of Augmentin. She did have noticed puncture wound laceration on the radial aspect of her left thumb. This was irrigated copiously. Since it is a puncture wound cat bite over joint, suturing not appropriate. We will monitor at home and advised for follow-up with PCP for wound recheck in 2-4 days. She also had noticed Scratches on forearms. At this time is no evidence of any foreign body debris. Do not feel imaging revealed warranted at this time. I did discussed in detail concern for possible infection for her to return for wound recheck with any worsening symptoms if needed. Follow plan return cautions provided in detail and she is in agreement. - Radiology Data Radiology results reviewed: Yes I reviewed the patient's radiology results. Documented By: Campbell Latham PAC Signed By: 05/02/19 0016 DD/ [id number] Initialized By: [id number] Normal [place] [facility] MMA (VIT B12 STATUS)on 03-28 Cobalamin (Vitamin B12) [Mass/Vol] 0.11 umol/L Normal 0.00-0.40 [facility] Comment on above: Result Comment: INTE RPRETIVE INFORMATION: MMA Serum/Plasma, Vitamin B12 Status Test developed and characteristics determined by [facility]. See Compliance Statement B: [email or web address]/CS Performed by [facility], [address] [place] [id number] [email or web address], Arun Sheppard MD, Lab. Director Performed By: #### M COLBY #### [facility] [address] [place] [address] 45601 Folateon 03-26-2019 Folate 13.8 ng/mL Normal 3.0-16.0 [facility] Comment on above: Performed By: #### F OL #### [facility] [address] [place] [address] 45601 Iron Profileon 03-26-2019 % Iron Saturation 8 % Low 15-50 [facility] Comment on above: Performed By: #### I RONPR #### [facility] [address] [place] [address] 45601 Iron [Mass/Vol] 38 ug/dL Low 50-170 [facility] Comment on above: Performed By: #### I RONPR #### [facility] [address] [place] [address] 78814 Transferrin [Mass/Vol] 323 mg/dL Normal 203-362 [facility] Comment on above: Performed By: #### I RONPR #### [facility] [address] [place] [address] 15366 Basic Metabolic Panelon 06-0 Calcium [Mass/Vol] 9.6 mg/dL Normal 8.6-10.3 [facility] Comment on above: Performed By: #### B MP, LIPID, TSH #### [facility] [address] [place] [address] 99025 Chloride [Moles/Vol] 106 mmol/L Normal 98-107 [facility] Comment on above: Performed By: #### B MP, LIPID, TSH #### [facility] [address] [place] [address] 75819 CO2 [Moles/Vol] 25 mmol/L Normal 23-29 [facility] Comment on above: Performed By: #### B MP, LIPID, TSH #### [facility] [address] [place] [address] 39994 Creatinine [Mass/Vol] 0.76 mg/dL Normal 0.60-1.20 [facility] Comment on above: Performed By: #### B MP, LIPID, TSH #### [facility] [address] [place] [address] 55871 eGFR For Americans > 60 Normal > 60 [facility] Comment on above: Result Comment: eGFR = Estimated Glomerular Filtration Rate reported as mL/min/1.73 square meters Chronic Kidney Disease: < 60; Kidney failure: < 15 Performed By: #### B MP, LIPID, TSH #### [facility] [address] [place] [address] 77991 eGFR For Non- Americans > 60 Normal > 60 [facility] Comment on above: Performed By: #### B MP, LIPID, TSH #### [facility] [address] [place] [address] 59906 Glucose [Mass/Vol] 101 mg/dL Normal 70-105 [facility] Comment on above: Performed By: #### B MP, LIPID, TSH #### [facility] [address] [place] [address] 38942 Osmolality,Calculated 283 Normal 280-300 [facility] Comment on above: Performed By: #### B MP, LIPID, TSH #### [facility] [address] [place] [address] 08423 Potassium [Moles/Vol] 3.9 mmol/L Normal 3.5-5.1 [facility] Comment on above: Performed By: #### B MP, LIPID, TSH #### [facility] [address] [place] [address] 87115 Sodium [Moles/Vol] 136 mmol/L Normal 136-145 [facility] Comment on above: Performed By: #### B MP, LIPID, TSH #### [facility] [address] [place] [address] 74819 Urea nitrogen [Mass/Vol] 14 mg/dL Normal 6-20 [facility] Comment on above: Performed By: #### B MP, LIPID, TSH #### [facility] [address] [place] [address] 76853 Urea nitrogen/Creatinine [Mass ratio] 18 mg/mg Normal 6-26 [facility] Comment on above: Performed By: #### B MP, LIPID, TSH #### [facility] [address] [place] [address] 03283 Complete Blood Counton 03-02 Basophils (Bld) [#/Vol] 0.0 K/mcL Normal 0.0-0.2 [facility] Comment on above: Performed By: #### C BC #### [facility] [address] [place] [address] 34280 Eosinophils (Bld) [#/Vol] 0.1 K/mcL Normal 0.0-0.6 [facility] Comment on above: Performed By: #### C BC #### [facility] [address] [place] [address] 72154 Lymphocytes (Bld) [#/Vol] 1.2 K/mcL Normal 0.6-4.6 [facility] Comment on above: Performed By: #### C BC #### [facility] [address] [place] [address] 02479 Monocytes (Bld) [#/Vol] 0.6 K/mcL Normal 0.0-1.3 [facility] Comment on above: Performed By: #### C BC #### [facility] [address] [place] [address] 96937 Neutrophils (Bld) [#/Vol] 5.2 K/mcL Normal 1.6-8.9 [facility] Comment on above: Performed By: #### C BC #### [facility] [address] [place] [address] 31840 Basophils/100 WBC (Bld) 0.3 % Normal [facility] Comment on above: Performed By: #### C BC #### [facility] [address] [place] [address] 55232 Eosinophils/100 WBC (Bld) 1.8 % Normal [facility] Comment on above: Performed By: #### C BC #### [facility] [address] [place] [address] 19868 Erythrocyte distribution width (RBC) [Ratio] 15.0 % High 11.5-14.5 [facility] Comment on above: Performed By: #### C BC #### [facility] [address] [place] [address] 05832 Hematocrit (Bld) [Volume fraction] 36.0 % Normal 35.3-44.9 [facility] Comment on above: Performed By: #### C BC #### [facility] [address] [place] [address] 49822 Hemoglobin (Bld) [Mass/Vol] 11.0 g/dL Low 11.5-15.4 [facility] Comment on above: Performed By: #### C BC #### [facility] [address] [place] [address] 16816 Immature granulocytes/100 WBC (Bld) 0.4 % Normal 0-4 [facility] Comment on above: Performed By: #### C BC #### [facility] [address] [place] [address] 90765 Lymphocytes/100 WBC (Bld) 17.2 % Normal [facility] Comment on above: Performed By: #### C BC #### [facility] [address] [place] [address] 01631 MCH (RBC) [Entitic mass] 30.6 g/dL Low 31.6-35.5 [facility] Comment on above: Performed By: #### C BC #### [facility] [address] [place] [address] 45703 MCH (RBC) [Entitic mass] 25.6 pg Low 28.0-33.3 [facility] Comment on above: Performed By: #### C BC #### [facility] [address] [place] [address] 10130 MCV (RBC) [Entitic vol] 83.9 fL Normal 83.0-100.0 [facility] Comment on above: Performed By: #### C BC #### [facility] [address] [place] [address] 55969 Monocytes/100 WBC (Bld) 8.1 % Normal [facility] Comment on above: Performed By: #### C BC #### [facility] [address] [place] [address] 73407 Platelet mean volume (Bld) [Entitic vol] 12.1 fL Normal 9.4-12.4 [facility] Comment on above: Performed By: #### C BC #### [facility] [address] [place] [address] 98324 Platelets (Bld) [#/Vol] 183 K/mcL Normal 140-400 [facility] Comment on above: Performed By: #### C BC #### [facility] [address] [place] [address] 59752 RBC (Bld) [#/Vol] 4.29 M/mcL Normal 3.82-4.97 [facility] Comment on above: Performed By: #### C BC #### [facility] [address] [place] [address] 75984 Segmented neutrophils/100 WBC (Bld) 72.2 % Normal [facility] Comment on above: Performed By: #### C BC #### [facility] [address] [place] [address] 84273 WBC (Bld) [#/Vol] 7.1 K/mcL Normal 4.3-11.1 [facility] Comment on above: Performed By: #### C BC #### [facility] [address] [place] [address] 81111 Hgb A1Con 03-02-2019 HbA1c (Bld) [Mass fraction] 120 mg/dl Normal [facility] Comment on above: Result Comment: Johanna mated glucose calculated using (28.7 x HGBA1C) - 46.7 Performed By: #### H GBA1C #### [facility] [address] [place] [address] 85090 HbA1c (Bld) [Mass fraction] 5.8 % High [facility] Comment on above: Result Comment: ADA Recomendations: Normal........ less than 5.7% Prediabetes... 5.7% to 6.4% Diabetes...... 6.5% or higher Glycemic Goal (known diabetics): < 8%...... Less stringent < 7%...... General (non- adults) < 6.5%.... More stringent Performed By: #### H GBA1C #### [facility] [address] [place] [address] 59991 Lipid Panelon 03-02-2019 Cholesterol [Mass/Vol] 152 mg/dL Normal < 200 [facility] Comment on above: Performed By: #### B MP, LIPID, TSH #### [facility] [address] [place] [address] 70834 Cholesterol in HDL [Mass/Vol] 68 mg/dL High 40-59 [facility] Comment on above: Result Comment: Please evaluate HDL levels in context with other risk factors. (AHA Guidelines.2017) Performed By: #### B MP, LIPID, TSH #### [facility] [address] [place] [address] 77206 Cholesterol.total/Cho lesterol in HDL [Mass ratio] 2.2 {ratio} Normal 0-4.9 [facility] Comment on above: Performed By: #### B MP, LIPID, TSH #### [facility] [address] [place] [address] [phone] LDL Cholesterol,Calculate d 72 mg/dL Normal 0-99 [facility] Comment on above: Performed By: #### B MP, LIPID, TSH #### [facility] [address] [place] [address] [phone] Triglyceride [Mass/Vol] 58 mg/dL Normal < 150 [facility] Comment on above: Performed By: #### B MP, LIPID, TSH #### [facility] [address] [place] [address] 31688 VLDL Cholesterol,Calculate d 12 mg/dL Normal < 31 [facility] Comment on above: Performed By: #### B MP, LIPID, TSH #### [facility] [address] [place] [address] 31601 Thyroid Stimulating Hormoneo n 03-02-2019 TSH Qn 1.122 mcIU/mL Normal 0.340-5.600 [facility] Comment on above: Performed By: #### B MP, LIPID, TSH #### [facility] [address] [place] [address] [phone] Vital Signs Date Time Vital Sign Value Performing Clinician Facility 01-24-2023 13:14-0400 Diastolic blood pressure 87 mm[Hg] Helen Solis MD Work Phone: [facility] 01-24-2023 13:14-0400 Heart rate 67 /min Helen Solis MD Work Phone: [facility] 01-24-2023 13:14-0400 Respiratory rate 18 /min Helen Solis MD Work Phone: [facility] 01-24-2023 13:14-0400 SaO2% (BldA) [Mass fraction] 97 % Helen Solis MD Work Phone: [facility] 01-24-2023 13:14-0400 Systolic blood pressure 130 mm[Hg] Helen Solis MD Work Phone: [facility] 01-24-2023 12:30-0400 Body temperature 97.7 [degF] Helen Solis MD Work Phone: [facility] 01-24-2023 08:52-0400 Body mass index (BMI) [Ratio] 22.39 kg/m2 Helen Solis MD Work Phone: [employer] 01-24-2023 08:52-0400 Body weight 57.34 kg Helen Solis MD Work Phone: [facility] [email or web address] 01-17-2023 11:23-0400 Body height 160 cm Helen Solis MD Work Phone: [facility] [email or web address] 10-22-2021 11:30-0500 Body height 157.48 cm Dianna Clement Other [facility] Other 10-22-2021 11:30-0500 Body mass index (BMI) [Ratio] 24.18 kg/m2 Dianna Racquel Other [facility] Other 10-22-2021 11:30-0500 Body temperature 98 [degF] Dianna Clement Other [facility] Other 10-22-2021 11:30-0500 Body weight 59.97 kg Dianna Racquel Other [facility] Other 10-22-2021 11:30-0500 Diastolic blood pressure 75 mm[Hg] Dianna Clement Other [facility] Other 10-22-2021 11:30-0500 Respiratory rate 18 /min Dianna Clement Other [facility] Other 10-22-2021 11:30-0500 SaO2% (BldA) [Mass fraction] 99 % Dianna Clement Other [facility] Other 10-22-2021 11:30-0500 Systolic blood pressure 131 mm[Hg] Dianna Clement Other [facility] Other Encounters Encounter Date Encounter Type Care Provider Facility Start: 01-24-2023 End: 01-24-2023 ambulatory DIANNA RACQUEL [facility] Start: 01-24-2023 End: 01-24-2023 Subsequent hospital visit by physician Helen Solis MD Work Phone: [facility] Comment on above: S/P arthroscopy of l eft knee (Primary Dx) Start: 01-13-2023 End: 01-14-2023 ambulatory HELENROYCE SOLIS [facility] Start: 01-13-2023 End: 01-14-2023 Encounter for other preprocedural examination [facility] Start: 01-13-2023 End: 01-13-2023 Subsequent hospital visit by physician Dianna Clement [employer]IN[employer] - CLAIM INSPECTOR Work Phone: [facility] Start: 01-01-2022 End: 01-02-2022 Evaluation and management of inpatient DIANNA CLEMENT Facility:[facility] Start: 01-01-2022 Encounter for preprocedural laboratory examination DR ANDRIA JOYNER [facility] Start: 12-29-2021 End: 12-30-[address] ANDRIA JOYNER Facility:[facility] Start: 12-29-2021 End: 12-30-2021 Encounter for preprocedural laboratory examination DR ANDRIA JOYNER Facility:[facility] Start: 11-10-2021 End: 11-11-[address] ANDRIA JOYNER Facility:[facility] Start: 11-06-2021 Encounter for other preprocedural examination DR ANDRIA JOYNER [facility] Start: 11-02-2021 End: 11-03-[address] ANDRIA JOYNER Facility:[facility] Start: 11-02-2021 End: 11-03-2021 Encounter for other preprocedural examination DR ANDRIA JOYNER Facility:[facility] Start: 10-22-2021 End: 10-22-2021 ambulatory Dianna Clement Other [facility] Other Start: 10-22-2021 Office outpatient vi sit 15 minutes Dianna Clement [facility] Start: 10-20-2021 End: 10-20-[address] ANDRIA JOYNER Facility:[facility] Start: 07-01-2021 End: 07-02-2021 ambulatory YANDEL CHÁVEZ Facility:[facility] Start: 01-14-2021 End: 01-14-2021 Patient encounter procedure Dianna Clement Work Phone: [facility] Procedures Date Procedure Procedure Detail Performing Clinician Start: 01-13-2023 Basic metabolic pane l calcium total Helen Solis MD Work Phone: Start: 01-01-2022 Resection of Bilater al Fallopian Tubes, Open Approach DIANNA CLEMENT Start: 01-01-2022 Resection of Uterus, Open Approach DIANNA CLEMENT Start: 01-14-2021 Plain X-ray of right hip Dianna Clement Work Phone: Start: 01-14-2021 X-ray of right knee Luke Clement Work Phone: Start: 01-14-2021 X-ray of lumbar spin e, four views Dianna Clement Work Phone: Plan of Treatment Date Care Activity Detail Author Start: 04-26-2023 Influenza vaccination Flu vacc ine (Season Ended) [facility] Start: 01-24-2023 End: 01-24-2023 Arthrs kne surg w/meniscectomy med/lat w/shvg KNEE ARTHROSCOPY Acute medial meniscus tear of left knee, initial encounter 01/24/2023 10:55 AM EDT [facility] Start: 2022 Screening for malign ant neoplasm of colon [facility] Start: 2017 Lipid panel Lipids [facility] Start: 2007 Screening for malign ant neoplasm of cervix [facility] Start: 1998 Screening for malign ant neoplasm of cervix Pap smear [facility] Start: 01-07-1996 DTaP/Tdap/Td vaccine (1 - Tdap) DTaP/Tdap/Td vaccine (1 - Tdap) [facility] Start: 1995 Hepatitis C screening Hepatitis C sc reen [facility] Start: 01-07-1992 HIV screening HIV screen [facility] Start: 1989 Depression Screen Depression Screen [facility] Start: 1983 Pneumococcal 0-64 ye ars Vaccine (1 - PCV) Pneumococcal 0-64 years Vaccine (1 - PCV) [facility] Start: 1977 COVID-19 Vaccine (#1) COVID-19 Vacci ne (#1) [facility] End: 01-24-2023 INITIATE PACU OXYGEN THERAPY PROTOCOL Initiate PACU Oxygen Therapy Protocol Respiratory Care Routine Continuous until discontinued starting 01/24/2023 [facility] Comment on above: Continuous until dis continued starting 01/24/2023 Payers Date Payer Category Payer Medicaid [id number] 1975 Unknown [id number] 2.16.84 [id number] 1977 Unknown [id number] 2.16.84 [id number] 1977 Unknown [id number] 2.16.84 [id number] 1977 Unknown [id number] 2.16.84 [id number] 1977 Unknown [id number] 2.16.84 [id number] 1977 Unknown [id number] 2.16.84 [id number] 1977 Unknown [id number] 2.16.8 [id number] 1977 Unknown [id number] 2.16.8 [id number] 1959 Unknown [id number] Self-pay Self Pay [id number] Social History Date Type Detail Facility Tobacco smoking status MAIS Unknown if ever smoked [facility] Start: 1975 Sex Assigned At Female F [facility] Sex Assigned At Sex Assigned At Bir th [facility] Other Tobacco smoking status NHIS Tobacco smoking consumption unknown [facility] Phone: Start: 1975 Sex Assigned At Not on file [facility] Phone: Start: 01-17-2023 Tobacco smoking status NHIS Smokes tobacco daily [facility] Phone: History of tobacco use Cigarette Smoker [employer] Phone: Start: 01-17-2023 Tobacco use and exposure Smokeless tobacco non-user [employer] Phone: Start: 01-07-2023 End: 01-17-2023 Exposure to SARS-CoV-2 (event) Not sure [facility] Phone: Goals Date Patient Goal Desired Activity /State History of Present illness Narrative 01-24-2023 Hilaria Reaves RN - 01/24/2023 1:32 PM EDTBwayne Tapia RN - 01/17/2023 11:28 AM EDT Note Date & Type Note Facility 01-24-2023 History of Present illness Narrative Discharge Criteria Inpatients must meet Criteria 1 through 7. All other patients are either YES or N/A. If a NO is chosen then Anesthesia or Surgeon must be notified. 1. Minimum 30 minutes after last dose of sedative medication, minimum 120 minutes after last dose of reversal agent. Yes 2. Systolic BP stable within 20 mmHg for 30 minutes & systolic BP between 90 & 180 or within 10 mmHg of baseline. Yes 3. Pulse between 60 and 100 or within 10 bpm of baseline. Yes 4. Spontaneous respiratory rate >/= 10 per minute. Yes 5. SaO2 >/= 95 or >/= baseline. Yes 6. Able to cough and swallow or return to baseline function. Yes 7. Alert and oriented or return to baseline mental status. Yes 8. Demonstrates controlled, coordinated movements, ambulates with steady gait, or return to baseline activity function. Yes 9. Minimal or no pain or nausea, or at a level tolerable and acceptable to patient. Yes 10. Takes and retains oral fluids as allowed. Yes 11. Procedural / perioperative site stable. Minimal or no bleeding. Yes 12. If GI endoscopy procedure, minimal or no abdominal distention or passing flatus. N/A 13. Written discharge instructions and emergency telephone number provided. Yes 14. Accompanied by a responsible adult. Yes Patient instructed on the pre-operative, intra-operative, and post-operative process. Patient instructed on NPO status. Medication instructions and pre operative instruction sheet reviewed with the patient. CHG skin prep instructions reviewed with patient. Instructed pt to stop taking ibuprofen 7 days prior to surgery and to bring crutches to the hospital the day of surgery. [facility] this encounter [facility] Discharge instructions 01-24-2023 Discharge Instructions Note Date & Type Note Facility 01-24-2023 Hospital Discharg e instructions Hilaria Reaves RN - 01/24/2023 12:40 PM EDT SAME DAY SURGERY DISCHARGE INSTRUCTIONS 1. Do not drive or operate hazardous machinery for 24 hours. 2. Do not make important personal or business decisions for 24 hours. 3. Do not drink alcoholic beverages for 24 hours. 4. Do not smoke tobacco products for 24 hours. 5. Eat light foods (Jell-O, soups, etc....) and drink plenty of fluids (water, Sprite, etc...) up to 8 glasses per day, as you can tolerate. 6. If your bandages become soaked with bright red blood, place another dressing pad over your bandages. (DO NOT remove original bandage.) Call your surgeon for further instructions. A small amount of bright red blood is to be expected. 7. Limit your activities for 24 hours. Do not engage in heavy work until your surgeon gives you permission. 8. Patient should not be left alone for 12-24 hours following surgical procedure. 9. Wash hands before and after incision care. It is important to practice good personal hygiene during the post op period. 10. Report the following signs or any questions regarding your physical condition to your surgeon immediately: Excessive swelling of, or around the wound area. Redness. Temperature of 100 degrees (F) or above. Excessive pain. 11. Call your surgeon [phone] for any questions regarding your surgery. 12. Call for an appointment to see your surgeon in 2 weeks. SPECIAL INSTRUCTIONS AND MEDICATIONS 1. Elevate leg on pillow for comfort & ice to operative site. 2. Move toes to improve circulation. 3. Continue leg exercises as instructed by Physical Therapy. 4. Use prescribed pain pill as directed by the doctor. You may use aspirin or Tylenol if you prefer. 5. Keep your dressing on and dry. 6. Remove operative bandage on 4th post op day. Then you may shower if wound is clean and dry. 7. Re-wrap with elastic wrap if knee is swollen. 8. Start knee motion on 1st post op day. 9. Use crutches only as needed. documented in this encounter [facility] Phone: Discharge summary note 01-01-2022 Note Date & Type Note Facility 01-01-2022 Note DISCHARGE SUMMARY DISCHARGE DATE: 02/01/2022 PRIMARY DIAGNOSES: 1. Large uterine fibroids 2. Menorrhagia. 3. Dysmenorrhea. 4. Dyspareunia. PROCEDURE: Total abdominal hysterectomy, bilateral salpingectomy with cystoscopy. HOSPITAL COURSE: As expected. Please see chart for full details. LABORATORY DATA: Please see chart. COMPLICATIONS: None. DISCHARGE CONDITION: Stable. CONSULTATION: Anesthesia. DISCHARGE INSTRUCTIONS: 1.Diet: Regular. 2.Medications: a.Percocet 5/325 one to two p.o. every 4-6 hours p.r.n. pain. b.Motrin 800 one p.o. every 8 hours p.r.n. pain. 3.Followup in one week. Restrictions: Pelvic rest for 6 weeks. No heavy lifting. May drive when pain free and no longer on narcotics. [facility] Signed and Approved by: DR ANDRIA JOYNER . 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 PREOPERATIVE DIAGNOSIS: 1. Large uterine fibroid. 2. Menorrhagia. 3. Dysmenorrhea. 4. Dyspareunia. POSTOPERATIVE DIAGNOSIS: 1. Large uterine fibroid. 2. Menorrhagia. 3. Dysmenorrhea. 4. Dyspareunia. ANESTHESIA: General. SURGEON: Andria Joyner D.O. QUALITY NURSE: ROSS Lea URINE OUTPUT: Yellow and clear. BLOOD LOSS: 600 mL. FINDINGS: Large, 6-7 cm fibroid that was anterior, near the bladder and adjacent to the uterine artery. Otherwise, normal appearing ovaries, enlarged uterus. SPECIMEN: Uterus and tubes. PROCEDURE: Patient was taken back to the Operating Room where she was given general anesthesia without difficulty. She was then prepped and draped in the normal sterile fashion. A Pfannenstiel skin incision was then made 2 cm above the symphysis and pubis and carried down to underlying rectus fascia using a Bovie. The fascia was incised in the midline and extended bilaterally using Klein scissors. Two Landy clamps were placed on the superior aspect of the fascia and dissected off the underlying rectus muscle. The same was performed on the inferior aspect as well. The muscle was then in the midline. The peritoneum was identified and entered bluntly. Peritoneum was then extended superiorly and inferiorly with good visualization of the bladder. An O'Gary- O-Ósacr retractor was placed into the patient's abdomen. The bowel was packed away with moist laparotomy sponges and the bladder blade was inserted. A Leahey tenaculum was placed on the patient's uterus and used for retraction. LigaSure apparatus was then used to come across the mesosalpingx from the fimbriated end to the uteroovarian ligament on the patient's right side which was then cauterized and transected. TThis was carried down serially through the broad ligament and across the round ligament. The bladder flap was then created using the Metzenbaum scissors, and the bladder was easily dissected off the patient's lower uterine segment. A curved Poli was placed across the uterine artery on the right side which was clamped, transected, and suture ligated using #0 Monocryl. This was performed on the contralateral side as well. The bladder was further dissected and a Zeppelin clamp was then placed across the uterosacral and cardinal ligaments. This was transected and suture ligated using #0 Monocryl. This was performed on the contralateral side as well. The uterus was then amputated using La scissors. The patient's cuff was closed using #0 PDS in a running locked fashion and this was transfixed to the ipsilateral uterosacral and cardinal ligaments. Excellent hemostasis was assured. The patient's abdomen was copiously irrigated using warm saline. Cystoscopy was performed. Bladder was intact. Efflux was noted from both ostia. Cystoscope was removed. After excellent hemostasis was assured, all instruments were removed from the patient's abdomen. The patient's peritoneum was closed using 3-0 Vicryl in a running fashion. The patient's fascia was closed using #0 Vicryl in a running fashion. The patient's skin was closed using 4-0 vicryl on a evelin needle. The patient tolerated the procedure well. Sponge, lap, and needle counts were correct times two. Patient taken to the Recovery Room in stable condition. Electronically Authenticated and Edited by: Andria Joyner DO on 01/12/2022 09:46 PM EDT [facility] Signed and Approved by: DR ANDRIA JOYNER . 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 Follow up after recovery of surgery and we can go further with treatment plan with hip and referral back o [facility] Sep, Excessive bleeding in premenopausal period (ICD-10 - N92.4) patient has planned hysterectomy next month. Sep, Costochondral chest pain (ICD-10 - R07.89) [facility] Other Evaluation note Note Date & Type Note Facility Evaluation note No Assessments Information Avail able [facility] Evaluation note Note Date & Type Note Facility Evaluation note Diagnosis S/P arthroscopy of left knee- Primary Other postprocedural status documented in this encounter [email or web address] Phone: History general Narrative - Reported Note Date & Type Note Facility History general Narrative - Reported Type Medical History chronic hip pain Medical History lumbar pain Medical History legg Calves Perthe Disease Surgical History right hip Surgical History left eye x 2 Hospitalization History see above [facility] Other Summary Purpose Family History No Family History Records FoundNo Family History Records FoundNo Family History Records FoundNo Family History Records Found Advance Directives No Advanced Directives Records Found Advance Directive Response Recorded Date/ Time Advance Directives No March 11 12:39pm Additional Source Comments INFORMATION SOURCE (unrecogn ized section and content) DATE CREATED AUTHOR 05/02/2019 [facility] DATE CREATED AUTHOR AUTHOR'S ORGANIZ ATION 11/14/2021 [facility] DATE CREATED AUTHOR AUTHOR'S ORGANIZ ATION 02/11/2022 [facility] DATE CREATED AUTHOR AUTHOR'S ORGANIZ ATION 01/26/2023 [facility] REASON FOR VISIT (unrecogniz ed section and content) Specialty Diagnoses / Procedures Referred By Lizabeth t Referred To Contact Diagnoses Acute medial meniscus tear of left knee, initial encounter TEAR OF MEDIAL MENISCUS LEFT KNEE S83.242A, 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 Procedures [facility] ARTHRS KNE SURG W/MENISCECTOMY MED/LAT W/SHVG KNEE ARTHROSCOPY, MEDIAL MENISCUS, CHONDROPLASTY Helen Solis MD [address] [place] [address] [facility] [id number] [place] [address] Referral ID Status Reason Start Date Expiration Date Visits Re quested Visits Authorized [id number] 1 1 Care Teams (unrecognized sec tion and content) [employer] Relationship Specialty Start Date End Date RacquelJosue maehanieDONELL - CLAIM INSPECTOR [address] [place] [address] PCP - General 11/17/21 [employer] Relationship Specialty Start Date End Date RacquelJosueDiannaDONELL bolden - CLAIM INSPECTOR [address] [place] [address] PCP - General 11/17/21 Ordered Prescriptions (unrec ognized section and content) Prescription Sig Dispensed Refills Start Date End Da te HYDROcodone-acetaminophe n (NORCO) 5-325 MG per tabletIndications:S/P arthroscopy of left knee Take 1-2 tablets by mouth every 6 hours as needed for Pain for up to 5 days. Max Daily Amount: 8 tablets 30 tablet 0 01/24/2023 01/29/2023 Scheduled Active and Recently Administ ered Medications (unrecognized section and content) Medication Order 01/22/2023 01/23/2023 01/24/2023 acetaminophen (TYLENOL) tablet 650 mg (COMPLETED) 650 mg, Oral, ONCE, 1 dose, On Tue01/24/23 at 0900, Maximum dose of acetaminophen is 4000 mg from all sources in 24 hours., Pre-op (day of surgery) 0908 (Given - Provid er: Jessica Murillo RN) ceFAZolin (ANCEF) 2000 mg in 0.9% sodium chloride 100 mL IVPB (COMPLETED) 2,000 mg, IntraVENous, ONCE, 1 dose, On Tue01/24/23 at 0900, Antimicrobial Indications: Surgical Prophylaxis, Pre-op (day of surgery) 1053 (New Bag - Prov ider: Jacky Walton RN)1123 (Due: Stopped - Provider: Jacky Walton RN) dimenhyDRINATE (DRAMAMINE) tablet 50 mg (COMPLETED) 50 mg, Oral, ONCE, 1 dose, On Tue01/24/23 at 0900, Pre-op (day of surgery) 0908 (Given - Provid er: Jessica Murillo RN) sodium chloride flush 0.9 % injection 5-40 mL 5-40 mL, IntraVENous, EVERY 12 HOURS SCHEDULED (2 times per day), First dose on Tue01/24/23 at 2100, Until Discontinued, For Line Patency: Peripheral IV = 5 mL; Midline or Central Line = 10 mL/lumen. If following IV push medication, administer flush at same rate as the IV push. Flush volume is determined by type of infusion therapy being given. For non-viscous solutions use: Peripheral IV = 5 mL Midline or Central Line = 10 mL/lumen For viscous solutions (i.e. blood components, parenteral nutrition, contrast media, or after obtaining blood sample) use: Peripheral IV = 10 mL Midline or Central Line = 20 mL/lumen, PACU only 2100 (Due) Continuous Medication Order 01/22/2023 01/23/2023 01/24/2023 lactated ringers IV soln infusion IntraVENous, at 100 mL/hr, CONTINUOUS, Starting on Tue01/24/23 at 0900, Pre-op (day of surgery) 0913 (New Bag - Prov ider: Jessica Murillo RN)1055 (NoRateChange - Provider: DONELL Benson [employer])1153 (Rate/Dose Change - Provider: DONELL Benson CRNA)1318 (Stopped - Provider: Hilaria Reaves RN) PRN Medication Order 01/22/2023 01/23/2023 01/24/2023 0.9 % sodium chloride infusion IntraVENous, at 5-250 mL/hr, PRN, if patient receiving piggyback infusions and maintenance fluids are not ordered OR KVO fluids to protect IV site / prevent frequent line interruptions/ long duration, Starting on Tue01/24/23 at 1202, For piggyback infusion, administer at same rate as piggyback for a total of 25 mL. Enter 25 mL into dose field and piggyback rate into rate field of order. If piggyback is infusing at a rate less than 100 mL/hr, enter 25 mL into dose field and 100 mL/hr into rate field of order. For KVO fluids, enter rate of 20 mL/hr or less into rate field of order., PACU only fentaNYL (SUBLIMAZE) injection 50 mcg 50 mcg, IntraVENous, EVERY 5 MIN PRN, 2 doses, Starting on Tue01/24/23 at 1202, Until Discontinued, Pain Severe (7-10), Pain Moderate (4-6), For Phase I. If Phase II oral narcotics have been administered in the last 60 minutes, do not administer IV narcotics unless specifically approved by provider., PACU only 1210 (Given - Provid er: Hilaria Reaves RN) HYDROcodone-acetaminophen (NORCO) 5-325 MG per tablet 1 tablet 1 tablet, Oral, EVERY 6 HOURS PRN, Starting on Tue01/24/23 at 1202, Until Discontinued, Pain Moderate (4-6), Pain Severe (7-10), Maximum dose of acetaminophen is 4000 mg from all sources in 24 hours., PACU & Post-op 1233 (Given - Provid er: Hilaria Reaves RN) sod chloride IRR soln 0.9 % 3,000 mL with EPINEPHrine (EPINEPHrine HCL) 1 mg/mL 1 mg (CANCELED) PRN, Starting on Tue01/24/23 at 1129, Intra-op 1129 (Given - Provid er: Helen Solis MD) sodium chloride flush 0.9 % injection 5-40 mL 5-40 mL, IntraVENous, PRN, Starting on Tue01/24/23 at 1202, Until Discontinued, Line Care, After every IV line use, For Line Patency: Peripheral IV = 5 mL; Midline or Central Line = 10 mL/lumen. If following IV push medication, administer flush at same rate as the IV push. Flush volume is determined by type of infusion therapy being given. For non-viscous solutions use: Peripheral IV = 5 mL Midline or Central Line = 10 mL/lumen For viscous solutions (i.e. blood components, parenteral nutrition, contrast media, or after obtaining blood sample) use: Peripheral IV = 10 mL Midline or Central Line = 20 mL/lumen, PACU only FOR RECORDS PERTAINING TO PATIENTS WHO ARE OR HAVE BEEN ENROLLED IN A CHEMICAL DEPENDENCY/SUBSTANCEABUSE PROGRAM, SOME INFORMATION MAY BE OMITTED. This clinical summary was aggregated from multiple sources. Caution should be exercised in using it in the provision of clinical care. This summary normalizes information from multiple sources, and as a consequence, information in this document may materially change the coding, format and clinical context of patient data. In addition, data may be omitted in some cases. CLINICAL DECISIONS SHOULD BE BASED ON THE PRIMARY CLINICAL RECORDS. [facility] [place] [email or web address] [facility]. provides no warranty or guarantee of the accuracy or completeness of information in this document.
== END 2023-12-12 10:04 | disposition home or self-care (01) ==
LOC: RAD 10:04
PROVIDERS: PCP Nurse Practitioner Family; Visit Provider Nurse Practitioner Family
DX: S49.91XA Unspecified injury of right shoulder and upper arm, initial encounter (principal)
CPT/HCPCS: 73080; 73090

== ENCOUNTER 2024-08-27 17:13 | Emergency (ER) | payer MEDICAID, SELFPAY ==
--- OUTSIDE RECORDS SUMMARY | 2024-08-27 17:25 | XMS_ITS | CCD ---
Author Organization [facility] Care Team Providers Care Medical Assistant Ob Gyn Name Role Phone Dianna Clement Primary Care Provider Fidencio Archibald Attending Provider [phone] DIANNA CLEMENT Primary Care Unavailable RADHA, DR AYERS Admitting Unavailable RADHA, DR AYERS Attending Unavailable RADHA, DR AYERS Consulting Unavailable AGUBOSIMPALMER Consulting Unavailable RADHA, DR AYERS Procedure Practitioner Unavailab BRETT Medel Consulting Unavailable SAIRA, YANDEL Attending Unavailable SAIRA, YANDEL Admitting Unavailable ANGELA, DR DARRICK Gonzalez Consulting Unavailable SAIRA, YANDEL Consulting Unavailable RADHA, DR AYERS Admitting Unavailable [...] AYERS Consulting Unavailable Dianna Clement Unavailable Racquel SPRAY BOOTH OPERATOR - CHEF FRENCHDianna Primary Care Provid er HELEN SOLIS Referring [...] mouth once Vitamin D (Ergocalciferol) 1.25 MG (48227 UT) 1 capsule Orally for 30 day(s) [...] Amide Local Anesthetic Lidocaine 5 % (Prior Auth#:[id number]) External for 15 Active methylPREDNISolone 4 mg oral tablet (2 sources) Corticosteroid Start: 01-31-2024 take 1 tablet by mouth once Methylprednisolone (Medrol (Caleb)) 4 mg tablets,dose pack Active 0 PO per package directions January 31, 2024 12:00am PO PER PKG DIR Start: 10-22-2021 methylPREDNISo lone 4 MG as directed Orally Once a [...] mg/ml injection (3 sources) Start: 01-24-2023 sodium chlorid e flush 0.9 % injection 5-40 mL Start: [...] hip] Chronic Other aftercare (1 source) Other terminal carman (current) drug therapy; Translations: [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] Onset: 2022 Episodic Other bone disease and musculoskeletal deformities (1 source) Juvenile osteochondrosis of lower extremity; Translations: [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-Curvycx], right leg] Chronic Other bone disease and musculoskeletal deformities (1 source) 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], right leg Onset: 10-22-2021 Resolved: 10-22-2021 Chronic [...] legs; Translations: [Restless legs syndrome] Chronic Other lower respiratory disease (1 source) Rib pain; Translations: [Pleurodynia] 01-31-2024 Episodic Other lower respiratory disease (1 source) Pleurodynia; Translations: [Chest pain, unspecified] 01-31-2024 Episodic Other nervous system disorders (1 source) Other chronic pain; Translations: [OTHER CHRONIC PAIN] Onset: 2022 Chronic Other non-traumatic joint disorders (1 source) Pain in unspecified hip; Translations: [PAIN IN UNSPECIFIED HIP] Onset: 2022 Episodic Other upper respiratory infections (2 sources) Viral upper respiratory tract infection; Translations: [Acute upper respiratory infection, unspecified] 05-07-2024 Episodic Residual codes; unclassified (1 source) History [...] Range Facility OPERATIVE REPORTon 3 OPERATIVE [address]PORT [address] [id number] OPERATIVE REPORT PATIENT NAME: BEENA RUANO : 1975 MED REC NO: [id number] ROOM: ACCOUNT NO: [id number] ADMIT DATE: 01/24/2023 PROVIDER: Helen Solis DATE [...] in a stable condition. Blood loss minimal. Clymer for discomfort. Return to the office in two weeks. HELEN SOLIS [id number] Doc#: [id number] CC: Normal [facility] Basic Metabolic Panelon 12-26 Anion gap [Moles/Vol] 9 mmol/L 9 - 17 mmol/L [facility] Calcium [Mass/Vol] 9.8 mg/dL 8.6 - 10. 4 mg/dL [facility] Chloride [Moles/Vol] 103 mmol/L 98 - 10 7 mmol/L [facility] CO2 [Moles/Vol] 25 mmol/L 20 - 31 mmol/L [facility] Creatinine [Mass/Vol] 0.86 mg/dL 0.50 - 0.90 mg/dL [facility] GFR/1.73 sq M.predicted MDRD (S/P/Bld) [Vol rate/Area] - PINF [facility] Comment on above: These results are not [...] 100 mg/dL High 70 - 99 mg/dL [facility] Interpretation and review of laboratory results Abnormal [facility] Potassium [Moles/Vol] 4.3 mmol/L 3.7 - 5.3 mmol/L [facility] Sodium [Moles/Vol] 137 mmol/L 135 - 144 mmol/L [facility] Urea nitrogen [Mass/Vol] 18 mg/dL 6 - 20 mg/dL [facility] Urea nitrogen/Creatinine (Bld) [Mass ratio] 21 High 9 - 20 [facility] Basic Metabolic Profon 01-13 Anion gap [Moles/Vol] 9 mmol/L Normal 9-17 [facility] Comment on above: Performed By: #### B MP, CDP #### [facility] [address] [place] [address] Medicine Man: Darrick Amaya MD BUN/CRE Ratio 21 High 9-20 [facility] Comment on above: Performed By: #### B LADAN, CDP #### [facility] [address] [place] [address] Medicine Man: Darrick Amaya MD Calcium [Mass/Vol] 9.8 mg/dL Normal 8.6-10.4 [facility] Comment on above: Performed By: #### B LADAN, CDP #### [facility] [address] [place] [address] Medicine Man: Darrick Amaya MD Chloride [Moles/Vol] 103 mmol/L Normal 98-107 [facility] Comment on above: Performed By: #### B LADAN, CDP #### [facility] [address] [place] [address] Medicine Man: Darrick Amaya MD CO2 [Moles/Vol] 25 mmol/L Normal 20-31 [facility] Comment on above: Performed By: #### B LADAN, CDP #### [facility] [address] [place] [address] Medicine Man: Darrick Amaya MD Creatinine [Mass/Vol] 0.86 mg/dL Normal 0.50-0.90 [facility] Comment on above: Performed By: #### B LADAN, CDP #### [facility] [address] [place] [address] Medicine Man: Darrick Amaya MD GFR/1.73 sq M.predicted among non-blacks MDRD (S/P/Bld) [Vol rate/Area] mL/min/{1.73_m2} Normal >60 [facility] Comment on above: Result Comment: These [...] Performed By: #### B LADAN, CDP #### [facility] [address] [place] [address] Medicine Man: Drarick Amaya MD Glucose [Mass/Vol] 100 mg/dL High 70-99 [facility] Comment on above: Performed By: #### B LADAN, CDP #### [facility] [address] [place], [place] [id number] Medicine Man: Darrick Amaya MD Potassium [Moles/Vol] 4.3 mmol/L Normal 3.7-5.3 [facility] Comment on above: Performed By: #### B LADAN, CDP #### [facility] [address] [place], [place] [id number] Medicine Man: Darrick Amaya MD Sodium [Moles/Vol] 137 mmol/L Normal 135-144 [facility] Comment on above: Performed By: #### B LADAN, CDP #### [facility] [address] [place], [place] [id number] Medicine Man: Darrick Amaya MD Urea nitrogen [Mass/Vol] 18 mg/dL Normal 6-20 [facility] Comment on above: Performed By: #### B LADAN, CDP #### [facility] [address] [place], [place] [id number] Medicine Man: Darrick Amaya MD CBC with Auto Differentialon 01-13-2023 Absolute Eos # 0.10 [facility] Absolute Immature Granulocyte [facility] Absolute Lymph # 1.64 [facility] Absolute Tate # 0.44 [facility] Basophils (Bld) [#/Vol] 0.04 10*3/uL [facility] Basophils/100 WBC (Bld) 1 % 0 - 2 % [facility] Eosinophils/100 WBC (Bld) 2 % 1 - 4 % [facility] Hematocrit (Bld) [Volume fraction] 44.3 % 36.3 - 47.1 % [facility] Hemoglobin (Bld) [Mass/Vol] 15.0 g/dL 11.9 - 15.1 g/dL [facility] Immature granulocytes/100 WBC (Bld) 0 % 0 [facility] Lymphocytes/100 WBC (Bld) 30 % 24 - 43 % [facility] MCH (RBC) [Entitic mass] 29.9 pg 25.2 - 33.5 pg [facility] MCHC (RBC) [Mass/Vol] 33.9 g/dL 28.4 - 34.8 g/dL [facility] MCV (RBC) [Entitic vol] 88.2 fL 82.6 - 102.9 fL [facility] Monocytes/100 WBC (Bld) 8 % 3 - 12 % [facility] NRBC Automated 0.0 0.0 per 100 WBC [facility] Platelet distribution width (Bld) [Ratio] 12.5 % 11.8 - 14.4 % [facility] Platelet mean volume (Bld) [Entitic vol] 11.6 fL 8.1 - 13.5 fL [facility] Platelets (Bld) [#/Vol] 170 10*3/uL [facility] RBC (Bld) [#/Vol] 5.02 10*6/uL 3.95 - 5.1 1 m/uL [facility] Segmented neutrophils/100 WBC (Bld) 59 % 36 - 65 % [facility] Segs Absolute 3.23 [facility] WBC (Bld) [#/Vol] 5.5 10*3/uL [facility] CBC with Diffon 01-13-2023 Abs. Basophil 0.04 k/uL Normal 0.00-0.20 [facility] Comment on above: Performed By: #### B MP, CDP #### [facility] [address] [place] [address] Medicine Man: Darrick Amaya MD Abs.Imm.Granulocyte <0.03 Normal 0.00-0.30 [facility] Comment on above: Performed By: #### B MP, CDP #### [facility] [address] [place] [address] Dr. [place], [place] [address] Medicine Man: Darrick Amaya MD Abs.Neutrophil (Seg) 3.23 k/uL Normal 1.50-8.10 [facility] Comment on above: Performed By: #### B MP, CDP #### [address] [place], [facility]83 Medicine Man: Darrick Amaya MD Basophils/100 WBC (Bld) 1 % Normal 0-2 [facility] Comment on above: Performed By: #### B LADAN, CDP #### [address] [place], [facility] Medicine Man: Darrick Amaya MD Eosinophils (Bld) [#/Vol] 0.10 10*3/uL Normal 0.00-0.44 [facility] Comment on above: Performed By: #### B LADAN, CDP #### [address] [place], [facility] Medicine Man: Darrick Amaya MD Eosinophils/100 WBC (Bld) 2 % Normal 1-4 [facility] Comment on above: Performed By: #### B MP, CDP #### [address] [place], [place] [address] Medicine Man: Darrick Amaya MD Erythrocyte distribution width (RBC) [Ratio] 12.5 % Normal 11.8-14.4 [facility] Comment on above: Performed By: #### B LADAN, CDP #### [address] [place], [facility] Medicine Man: Darrick Amaya MD Hematocrit (Bld) [Volume fraction] 44.3 % Normal 36.3-47.1 [facility] Comment on above: Performed By: #### B MP, CDP #### [facility] [address] [place], [place] [id number] Medicine Man: Darrick Amaya MD Hemoglobin (Bld) [Mass/Vol] 15.0 g/dL Normal 11.9-15.1 [facility] Comment on above: Performed By: #### B MP, CDP #### [facility] [address] [place], [place] [id number] Medicine Man: Darrick Amaya MD Immature granulocytes/100 WBC (Bld) 0 % Normal 0 [facility] Comment on above: Performed By: #### B MP, CDP #### [facility] [address] [place], [place] [id number] Medicine Man: Darrick Amaya MD Lymphocytes (Bld) [#/Vol] 1.64 10*3/uL Normal 1.10-3.70 [facility] Comment on above: Performed By: #### B MP, CDP #### [address] [place], [place] [id number] Medicine Man: Darrick Amaya MD Lymphocytes/100 WBC (Bld) 30 % Normal 24-43 [facility] Comment on above: Performed By: #### B MP, CDP #### [address] [place], [place] [id number] Medicine Man: Darrick Amaya MD MCH (RBC) [Entitic mass] 29.9 pg Normal 25.2-33.5 [facility] Comment on above: Performed By: #### B MP, CDP #### [facility] [address] [place], [place] [id number] Medicine Man: Darrick Amaya MD MCHC (RBC) [Mass/Vol] 33.9 g/dL Normal 28.4-34.8 [facility] Comment on above: Performed By: #### B MP, CDP #### [facility] [address] [place], [place] [id number] Medicine Man: Darrick Amaya MD MCV (RBC) [Entitic vol] 88.2 fL Normal 82.6-102.9 [facility] Comment on above: Performed By: #### B LADAN, CDP #### [facility] [address] [place] [address] Medicine Man: Darrick Amaya MD Monocytes (Bld) [#/Vol] 0.44 10*3/uL Normal 0.10-1.20 [facility] Comment on above: Performed By: #### B LADAN, CDP #### [facility] [address] [place], [place] [id number] Medicine Man: Darrick Amaya MD Monocytes/100 WBC (Bld) 8 % Normal 3-12 [facility] Comment on above: Performed By: #### B LADAN, CDP #### [address] [place], [place] [address] Medicine Man: Darrick Amaya MD Neutrophil (Seg) 59 % Normal 36-65 [facility] Comment on above: Performed By: #### B LADAN, CDP #### [address] [place], [place] [id number] Medicine Man: Darrick Amaya MD NRBC Automated 0.0 per 100 WBC Normal 0.0 [facility] Comment on above: Performed By: #### B LADAN, CDP #### [address] [place], [facility]83 Medicine Man: Darrick Amaya MD Platelet mean volume (Bld) [Entitic vol] 11.6 fL Normal 8.1-13.5 [facility] Comment on above: Performed By: #### B LADAN, CDP #### [address] [place] [address] Medicine Man: Darrick Amaya MD Platelets (Bld) [#/Vol] 170 10*3/uL Normal 138-453 [facility] Comment on above: Performed By: #### B MP, CDP #### [facility] [address] [place], [place] [id number] Medicine Man: Darrick Amaya MD RBC (Bld) [#/Vol] 5.02 10*6/uL Normal 3.95-5.11 [facility] Comment on above: Performed By: #### B MP, CDP #### [facility] [address] [place], [place] [id number] Medicine Man: Darrick Amaya MD WBC (Bld) [#/Vol] 5.5 10*3/uL Normal 3.5-11.3 [facility] Comment on above: Performed By: #### B MP, CDP #### [facility] [address] [place] [address] Medicine Man: Darrick Amaya MD BUNon 01-02-2022 Urea nitrogen [Mass/Vol] 12.0 mg/dL Normal 7.0-18.0 [facility] Comment on above: Performed By: #### B UN, CREA #### [facility] [address] [place] [address] Dr. Goran Ventura CBC AUTO DIFFon 01-02-2022 BASO # 0.0 103/ul Normal 0.0-0.1 [facility] Comment on above: Performed By: #### C BC #### [facility] [address] [place] [address] Dr. Goran Ventura Basophils/100 WBC (Bld) 0.2 % Normal 0.2-2.0 [facility] Comment on above: Performed By: #### C BC #### [facility] [address] [place] [address] Dr. Goran Ventura EO # 0.0 103/ul Normal 0.0-0.7 [facility] Comment on above: Performed By: #### C BC #### [facility] [address] [place] [address] Dr. Goran Ventura Eosinophils/100 WBC (Bld) 0.2 % Critically low 0.9-7.0 [facility] Comment on above: Performed By: #### C BC #### [facility] [address] [place] [address] Dr. Goran Ventura Erythrocyte distribution width (RBC) [Ratio] 13.2 % Normal 11.0-15.0 [facility] Comment on above: Performed By: #### C BC #### [facility] [address] [place] [address] Dr. Goran Ventura Hematocrit (Bld) [Volume fraction] 38.1 % Normal 36.0-48.0 [facility] Comment on above: Performed By: #### C BC #### [facility] [address] [place] [address] Dr. Goran Ventura Hemoglobin (Bld) [Mass/Vol] 12.7 g/dL Normal 12.0-16.0 [facility] Comment on above: Performed By: #### C BC #### [facility] [address] [place] [address] Dr. Goran Ventura IG # 0.07 10e3/ul Critically high 0.00-0.03 [facility] Comment on above: Performed By: #### C BC #### [facility] [address] [place] [address] Dr. Goran Ventura IG % 0.5 % Normal 0.0-0.5 [facility] Comment on above: Performed By: #### C BC #### [facility] [address] [place] [address] Dr. Goran Ventura LYMPH # 1.7 103/ul Normal 1.2-3.8 [facility] Comment on above: Performed By: #### C BC #### [facility] [address] [place] [address] Dr. Goran Ventura Lymphocytes/100 WBC (Bld) 12.2 % Critically low 20.5-60.0 [facility] Comment on above: Performed By: #### C BC #### [facility] [address] [place] [address] Dr. Goran Ventura MANUAL DIFF REQ NO Normal [facility] Comment on above: Performed By: #### C BC #### [facility] [address] [place] [address] [address] Goran Ventura MCH (RBC) [Entitic mass] 29.5 pg Normal 26.7-34.0 [facility] Comment on above: Performed By: #### C BC #### [facility] [address] [place] [address] [address] Goran Ventura MCHC (RBC) [Mass/Vol] 33.3 g/dL Normal 29.9-35.2 [facility] Comment on above: Performed By: #### C BC #### [facility] [address] [place] [address] [address] Goran Ventura MCV (RBC) [Entitic vol] 88.6 fL Normal 81.0-99.0 [facility] Comment on above: Performed By: #### C BC #### [facility] [address] [place] [address] Dr. Goran Ventura MONO # 1.1 103/ul Critically high 0.3-0.8 [facility] Comment on above: Performed By: #### C BC #### [facility] [address] [place] [address] Dr. Goran Ventura Monocytes/100 WBC (Bld) 8.2 % Normal 1.7-12.0 [facility] Comment on above: Performed By: #### C BC #### [facility] [address] [place] [address] [address] Goran Ventura NEUT # 10.7 103/ul Critically high 1.4-6.5 [facility] Comment on above: Performed By: #### C BC #### [facility] [address] [place] [address] [address] Goran Ventura Neutrophils/100 WBC (Bld) 78.7 % Critically high 43.0-75.0 [facility] Comment on above: Performed By: #### C BC #### [facility] [address] [place] [address] Dr. Goran Ventura Platelet mean volume (Bld) [Entitic vol] 11.3 fL Normal 9.5-13.5 [facility] Comment on above: Performed By: #### C BC #### [facility] [address] [place] [address] Dr. Goran Ventura PLT 181 103/ul Normal 150-450 [facility] Comment on above: Performed By: #### C BC #### [facility] [address] [place] [address] Dr. Goran Ventura RBC 4.30 106/ul Normal 4.20-5.40 [facility] Comment on above: Performed By: #### C BC #### [facility] [address] [place] [address] Dr. Goran Ventura WBC 13.7 103/ul Critically high 4.0-11.0 [facility] Comment on above: Performed By: #### C BC #### [facility] [address] [place] [address] Dr. Goran Ventura CREATININEon 01-02-2022 Creatinine [Mass/Vol] 1.06 mg/dL Critically high 0.52-1.04 [facility] Comment on above: Performed By: #### B UN, CREA #### [facility] [address] [place] [address] Dr. Goran Ventura EGFR-AF UZBEK >60 Normal >=60 [facility] Comment on above: Performed By: #### B UN, CREA #### [facility] [address] [place] [address] Dr. Goran Ventura EGFR-NON AF UZBEK 56 mL/min/1.73m2 Critically low >=60 [facility] Comment on above: Performed By: #### B UN, CREA #### [facility] [address] [place] [address] Dr. Goran Ventura CBC AUTO DIFFon 01-01-2022 BASO # 0.0 103/ul Normal 0.0-0.1 [facility] Comment on above: Performed By: #### C BC #### [facility] [address] [place] [address] Dr. Goran Ventura Basophils/100 WBC (Bld) 0.4 % Normal 0.2-2.0 [facility] Comment on above: Performed By: #### C BC #### [facility] [address] [place] [address] Dr. Goran Ventura EO # 0.1 103/ul Normal 0.0-0.7 [facility] Comment on above: Performed By: #### C BC #### [facility] [address] [place] [address] Dr. Goran Ventura Eosinophils/100 WBC (Bld) 2.9 % Normal 0.9-7.0 [facility] Comment on above: Performed By: #### C BC #### [facility] [address] [place] [address] Dr. Goran Ventura Erythrocyte distribution width (RBC) [Ratio] 12.9 % Normal 11.0-15.0 [facility] Comment on above: Performed By: #### C BC #### [facility] [address] [place] [address] Dr. Goran Ventura Hematocrit (Bld) [Volume fraction] 43.5 % Normal 36.0-48.0 [facility] Comment on above: Performed By: #### C BC #### [facility] [address] [place] [address] Dr. Goran Ventura Hemoglobin (Bld) [Mass/Vol] 14.7 g/dL Normal 12.0-16.0 [facility] Comment on above: Performed By: #### C BC #### [facility] [address] [place] [address] Dr. Goran Ventura IG # 0.00 10e3/ul Normal 0.00-0.03 [facility] Comment on above: Performed By: #### C BC #### [facility] [address] [place] [address] Dr. Goran Ventura IG % 0.0 % Normal 0.0-0.5 [facility] Comment on above: Performed By: #### C BC #### [facility] [address] [place] [address] Dr. Goran Ventura LYMPH # 1.4 103/ul Normal 1.2-3.8 [facility] Comment on above: Performed By: #### C BC #### [facility] [address] [place] [address] Dr. Goran Ventura Lymphocytes/100 WBC (Bld) 29.9 % Normal 20.5-60.0 [facility] Comment on above: Performed By: #### C BC #### [facility] [address] [place] [address] Dr. Goran Ventura MANUAL DIFF REQ NO Normal [facility] Comment on above: Performed By: #### C BC #### [facility] [address] [place] [address] Dr. Goran Ventura MCH (RBC) [Entitic mass] 29.2 pg Normal 26.7-34.0 [facility] Comment on above: Performed By: #### C BC #### [facility] [address] [place] [address] Dr. Goran Ventura MCHC (RBC) [Mass/Vol] 33.8 g/dL Normal 29.9-35.2 [facility] Comment on above: Performed By: #### C BC #### [facility] [address] [place] [address] Dr. Goran Ventura MCV (RBC) [Entitic vol] 86.3 fL Normal 81.0-99.0 [facility] Comment on above: Performed By: #### C BC #### [facility] [address] [place] [address] Dr. Goran Ventura MONO # 0.5 103/ul Normal 0.3-0.8 [facility] [facility] Comment on above: Performed By: #### C BC #### [facility] [address] [place] [address] Dr. Goran Ventura Monocytes/100 WBC (Bld) 11.1 % Normal 1.7-12.0 [facility] Comment on above: Performed By: #### C BC #### [facility] [address] [place] [address] Dr. Goran Ventura NEUT # 2.5 103/ul Normal 1.4-6.5 [facility] Comment on above: Performed By: #### C BC #### [facility] [address] [place] [address] Dr. Goran Ventura Neutrophils/100 WBC (Bld) 55.7 % Normal 43.0-75.0 [facility] Comment on above: Performed By: #### C BC #### [facility] [address] [address] [address] Goran Ventura Platelet mean volume (Bld) [Entitic vol] 10.6 fL Normal 9.5-13.5 [facility] Comment on above: Performed By: #### C BC #### [facility] [address] [place] [address] Dr. Goran Ventura PLT 158 103/ul Normal 150-450 [facility] Comment on above: Performed By: #### C BC #### [facility] [address] [place] [address] Dr. Goran Ventura RBC 5.04 106/ul Normal 4.20-5.40 [facility] Comment on above: Performed By: #### C BC #### [facility] [address] [place] [address] Dr. Goran Ventura WBC 4.5 103/ul Normal 4.0-11.0 [facility] Comment on above: Performed By: #### C BC #### [facility] [address] [place] [address] Dr. Goran Ventura PREG QUANT HCGon 01-01-2022 HCG QUANT <1 Normal [facility] Comment on above: Performed By: #### P REGQNT #### [facility] [address] [place] [address] Dr. Goran Ventura HCG RANGE SEE BELOW Normal [facility] Comment on above: Result Comment: 5-50 0-1 WEEK 40-300 1-2 WEEKS 100-1,000 2-3 WEEKS 500-6,000 3-4 WEEKS 5,000-200,000 1-2 MONTHS 10,000-100,000 2-3 MONTHS 3,000-50,000 2ND TRIMESTER 1,000-50,000 3RD TRIMESTER Performed By: #### P REGQNT #### [facility] [address] [place] [address] Dr. Goran Ventura Covid-19 PCR (CVDTB)on SARS-CoV-2 (COVID-19) RNA RAIF+probe Ql (Unsp spec) Not detected Normal NOT DETECTED [facility] Comment on above: Result Comment: This test is not yet approved or cleared by the [place] FDA. When there are no FDA-approved or cleared tests available, and other criteria are met, FDA can make tests available under an emergency access mechanism called an Emergency Use Authorization (EUA). The EUA for this test is supported by the [employer] of Health and Human Service's (HHS's) declaration [...] SARS-CoV-2. Performed By: #### C VDTBH #### [facility] [address] [place] [address] Dr. Goran Ventura TYPE AND SCREENon 12-29-2021 TYPE AND SCREEN Negative Normal [facility] Comment on above: Performed By: #### T NS #### [facility] [address] [place] [address] Dr. Goran Ventura Covid-19 PCR (CVDTB)on 10-27 SARS-CoV-2 (COVID-19) RNA RAFI+probe Ql (Unsp spec) Not detected Normal NOT DETECTED [facility] Comment on above: Result Comment: This test is not yet approved or cleared by the [place] FDA. When there are no FDA-approved or cleared tests available, and other criteria are met, FDA can make tests available under an emergency access mechanism called an Emergency Use Authorization (EUA). The EUA for this test is supported by the [place] of Health and Human Service's (HHS's) declaration [...] SARS-CoV-2. Performed By: #### C VDTBH #### [facility] [address] [place] [address] Dr. Goran Ventura TYPE AND SCREENon 11-10-2021 TYPE AND SCREEN Negative Normal [facility] Comment on above: Performed By: #### T NS #### [facility] [address] [place] [address] Dr. Goran Ventura VAGINITIS/VAGINOSIS DNA PROB James 10-21-2021 Cathy species Negative Normal Negative [facility] Comment on above: Performed By: #### V AGINT #### [facility] [address] [place] [address] Dr. Goran Ventura Gardnerella vaginalis Negative Normal Negative [facility] Comment on above: Performed By: #### V AGINT #### [facility] [address] [place] [address] Dr. Goran Ventura Trichomonas vaginalis Negative Normal Negative [facility] Comment on above: Performed By: #### V AGINT #### [facility] [address] [place] [address] Dr. Goran Ventura US PELVISon 07-01-2021 US [...] DARRICK MILLER Date: 2021-07-01 14:23 Normal [facility] XR knee RT 2Von 01-14-2021 XR knee RT 2V [facility] [place] [address] [place] [address] XRay Report Signed Patient: Beena Ruano MR#: [id number] : 1975 Acct:[id number] Age/Sex: 46 / F ADM Date: 01/14/21 Loc: [facility] Room: Type: [facility] Attending Dr: Fidencio Archibald MD Ordering Provider: Fidencio Archibald MD Date of Service: 01/14/21 XR/XR knee RT 2V: Acute pain of right knee ([id number]) XR/XR hip RT min 2V(w/wo pelvis)*: Right hip pain ([id number]) XR/XR lumbar spine AP/LAT/FLX/EXT: M25.561, M25.551 Copies [...] Kiersten Green M.D.01/14/2021 10:46 AM Dictation Location: [place] [address] Transcribed By: [facility] 01/14/21 1046 Dictated By: Kiersten Green MD 01/14/21 1039 Signed By: 01/14/21 1046 [facility] Emergency Documentationon Emergency Documentation [address] [address] Emergency Department Note Signed PRELIMINARY DRAFT REPORT UNTIL ELECTRONICALLY SIGNED PATIENT: Beena Ruano MR#: [id number] : 1975 AGE/SEX: 44 / F ADMITTED: [...] By: 05/02/19 0016 DD/ 2258 Initialized By: [id number] Normal [facility] MMA (VIT B12 STATUS)on 03-28 Cobalamin (Vitamin B12) [Mass/Vol] 0.11 umol/L Normal 0.00-0.40 [facility] Comment on above: Result Comment: INTE RPRETIVE INFORMATION: MMA Serum/Plasma, Vitamin B12 Status Test developed and characteristics determined by [employer]. See Compliance Statement B: [employer]/ Performed by [facility], [address] [place] [id number] [email or web address], Arun Sheppard MD, Lab. Director Performed By: #### M MA #### [facility] [address] [place] [address] 45601 Folateon 03-26-2019 Folate 13.8 ng/mL Normal 3.0-16.0 [facility] Comment on above: Performed By: #### F OL #### [facility] [address] [place] [address] 45601 Iron Profileon 03-26-2019 % Iron Saturation 8 % Low 15-50 [facility] Comment on above: Performed By: #### I RONPR #### [facility] [address] [place] [address] 40399 Iron [Mass/Vol] 38 ug/dL Low 50-170 [facility] Comment on above: Performed By: #### I RONPR #### [facility] [address] [place] [address] 39349 Transferrin [Mass/Vol] 323 mg/dL Normal 203-362 [facility] Comment on above: Performed By: #### I RONPR #### [facility] [address] [place] [address] 16071 Basic Metabolic Panelon 06-0 Calcium [Mass/Vol] 9.6 mg/dL Normal 8.6-10.3 [facility] Comment on above: Performed By: #### B MP, LIPID, TSH #### [facility] [address] [place] [address] 49069 Chloride [Moles/Vol] 106 mmol/L Normal 98-107 [facility] Comment on above: Performed By: #### B MP, LIPID, TSH #### [facility] [address] [place] [address] 28028 CO2 [Moles/Vol] 25 mmol/L Normal 23-29 [facility] Comment on above: Performed By: #### B MP, LIPID, TSH #### [facility] [address] [place] [address] 54669 Creatinine [Mass/Vol] 0.76 mg/dL Normal 0.60-1.20 [facility] Comment on above: Performed By: #### B MP, LIPID, TSH #### [facility] [address] [place] [address] 40581 eGFR For Americans > 60 Normal > 60 [facility] Comment on above: Result Comment: eGFR = Estimated Glomerular Filtration Rate reported as mL/min/1.73 square meters Chronic Kidney Disease: < 60; Kidney failure: < 15 Performed By: #### B MP, LIPID, TSH #### [facility] [address] [place] [address] 56638 eGFR For Non- Americans > 60 Normal > 60 [facility] Comment on above: Performed By: #### B MP, LIPID, TSH #### [facility] [address] [place] [address] 08294 Glucose [Mass/Vol] 101 mg/dL Normal 70-105 [facility] Comment on above: Performed By: #### B MP, LIPID, TSH #### [facility] [address] [place] [address] 85347 Osmolality,Calculated 283 Normal 280-300 [facility] Comment on above: Performed By: #### B MP, LIPID, TSH #### [facility] [address] [place] [address] 37811 Potassium [Moles/Vol] 3.9 mmol/L Normal 3.5-5.1 [facility] Comment on above: Performed By: #### B MP, LIPID, TSH #### [facility] [address] [place] [address] 15324 Sodium [Moles/Vol] 136 mmol/L Normal 136-145 [facility] Comment on above: Performed By: #### B MP, LIPID, TSH #### [facility] [address] [place] [address] 19650 Urea nitrogen [Mass/Vol] 14 mg/dL Normal 6-20 [facility] Comment on above: Performed By: #### B MP, LIPID, TSH #### [facility] [address] [place] [address] 27829 Urea nitrogen/Creatinine [Mass ratio] 18 mg/mg Normal 6-26 [facility] Comment on above: Performed By: #### B MP, LIPID, TSH #### [facility] [address] [place] [address] 25695 Complete Blood Counton 03-02 Basophils (Bld) [#/Vol] 0.0 K/mcL Normal 0.0-0.2 [facility] Comment on above: Performed By: #### C BC #### [facility] [address] [place] [address] 89849 Eosinophils (Bld) [#/Vol] 0.1 K/mcL Normal 0.0-0.6 [facility] Comment on above: Performed By: #### C BC #### [facility] [address] [place] [address] 63542 Lymphocytes (Bld) [#/Vol] 1.2 K/mcL Normal 0.6-4.6 [facility] Comment on above: Performed By: #### C BC #### [facility] [address] [place] [address] 01772 Monocytes (Bld) [#/Vol] 0.6 K/mcL Normal 0.0-1.3 [facility] Comment on above: Performed By: #### C BC #### [facility] [address] [place] [address] 28214 Neutrophils (Bld) [#/Vol] 5.2 K/mcL Normal 1.6-8.9 [facility] Comment on above: Performed By: #### C BC #### [facility] [address] [place] [address] 03877 Basophils/100 WBC (Bld) 0.3 % Normal [facility] Comment on above: Performed By: #### C BC #### [facility] [address] [place] [address] 77943 Eosinophils/100 WBC (Bld) 1.8 % Normal [facility] Comment on above: Performed By: #### C BC #### [facility] [address] [place] [address] 99915 Erythrocyte distribution width (RBC) [Ratio] 15.0 % High 11.5-14.5 [facility] Comment on above: Performed By: #### C BC #### [facility] [address] [place] [address] 22740 Hematocrit (Bld) [Volume fraction] 36.0 % Normal 35.3-44.9 [facility] Comment on above: Performed By: #### C BC #### [facility] [address] [place] [address] 14260 Hemoglobin (Bld) [Mass/Vol] 11.0 g/dL Low 11.5-15.4 [facility] Comment on above: Performed By: #### C BC #### [facility] [address] [place] [address] 47478 Immature granulocytes/100 WBC (Bld) 0.4 % Normal 0-4 [facility] Comment on above: Performed By: #### C BC #### [facility] [address] [place] [address] 62859 Lymphocytes/100 WBC (Bld) 17.2 % Normal [facility] Comment on above: Performed By: #### C BC #### [facility] [address] [place] [address] 48429 MCH (RBC) [Entitic mass] 30.6 g/dL Low 31.6-35.5 [facility] Comment on above: Performed By: #### C BC #### [facility] [address] [place] [address] 83873 MCH (RBC) [Entitic mass] 25.6 pg Low 28.0-33.3 [facility] Comment on above: Performed By: #### C BC #### [facility] [address] [place] [address] 51791 MCV (RBC) [Entitic vol] 83.9 fL Normal 83.0-100.0 [facility] Comment on above: Performed By: #### C BC #### [facility] [address] [place] [address] 17284 Monocytes/100 WBC (Bld) 8.1 % Normal [facility] Comment on above: Performed By: #### C BC #### [facility] [address] [place] [address] 87624 Platelet mean volume (Bld) [Entitic vol] 12.1 fL Normal 9.4-12.4 [facility] Comment on above: Performed By: #### C BC #### [facility] [address] [place] [address] 83999 Platelets (Bld) [#/Vol] 183 K/mcL Normal 140-400 [facility] Comment on above: Performed By: #### C BC #### [facility] [address] [place] [address] 85894 RBC (Bld) [#/Vol] 4.29 M/mcL Normal 3.82-4.97 [facility] Comment on above: Performed By: #### C BC #### [facility] [address] [place] [address] 42945 Segmented neutrophils/100 WBC (Bld) 72.2 % Normal [facility] Comment on above: Performed By: #### C BC #### [facility] [address] [place] [address] 63570 WBC (Bld) [#/Vol] 7.1 K/mcL Normal 4.3-11.1 [facility] Comment on above: Performed By: #### C BC #### [facility] [address] [place] [address] 86097 Hgb A1Con 03-02-2019 HbA1c (Bld) [Mass fraction] 120 mg/dl Normal [facility] Comment on above: Result Comment: Johanna mated glucose calculated using (28.7 x HGBA1C) - 46.7 Performed By: #### H GBA1C #### [facility] [address] [place] [address] 08771 HbA1c (Bld) [Mass fraction] 5.8 % High [facility] Comment on above: Result Comment: ADA Recomendations: Normal........ less than 5.7% Prediabetes... 5.7% to 6.4% Diabetes...... 6.5% or higher Glycemic Goal (known diabetics): < 8%...... Less stringent < 7%...... General (non- adults) < 6.5%.... More stringent Performed By: #### H GBA1C #### [facility] [address] [place] [address] 63905 Lipid Panelon 03-02-2019 Cholesterol [Mass/Vol] 152 mg/dL Normal < 200 [facility] Comment on above: Performed By: #### B LADAN, LIPID, TSH #### [facility] [address] [place] [address] [phone] Cholesterol in HDL [Mass/Vol] 68 mg/dL High 40-59 [facility] Comment on above: Result Comment: Please evaluate HDL levels in context with other risk factors. (AHA Guidelines.2017) Performed By: #### B MP, LIPID, TSH #### [facility] [address] [place] [address] [phone] Cholesterol.total/Cho lesterol in HDL [Mass ratio] 2.2 {ratio} Normal 0-4.9 [facility] Comment on above: Performed By: #### B MP, LIPID, TSH #### [facility] [address] [place] [address] LDL Cholesterol,Calculate d 72 mg/dL Normal 0-99 [facility] Comment on above: Performed By: #### B MP, LIPID, TSH #### [facility] [address] [place] [address] Triglyceride [Mass/Vol] 58 mg/dL Normal < 150 [facility] Comment on above: Performed By: #### B MP, LIPID, TSH #### [facility] [address] [place] [address] 86777 VLDL Cholesterol,Calculate d 12 mg/dL Normal < 31 [facility] Comment on above: Performed By: #### B MP, LIPID, TSH #### [facility] [address] [place] [address] 38483 Thyroid Stimulating Hormoneo n 03-02-2019 TSH Qn 1.122 mcIU/mL Normal 0.340-5.600 [facility] Comment on above: Performed By: #### B MP, LIPID, TSH #### [facility] [address] [place] [address] 64518 Vital Signs Date Time Vital Sign Value Performing Clinician Facility 01-31-2024 15: Body height 160.02 cm [facility] 01-31-2024 15: Body mass index (BMI) [Ratio] 24.3 kg/m2 [facility] 01-31-2024 15: Body temperature 98.6 [degF] [facility] 01-31-2024 15: Body weight 62.19 kg [facility] 01-31-2024 15: Diastolic blood pressure 88 mm[Hg] [facility] 01-31-2024 15: Heart rate 62 /min [facility] 01-31-2024 15: Respiratory rate 18 /min [facility] 01-31-2024 15:28-0400 SaO2% (BldA) [Mass fraction] 98 % [facility] 01-31-2024 15:28-0400 Systolic blood pressure 137 mm[Hg] [facility] 01-24-2023 13:14-0400 Diastolic blood pressure 87 mm[Hg] Helen Solis MD Work Phone: [facility] [employer] 01-24-2023 13:14-0400 Heart rate 67 /min Helen Solis MD Work Phone: [facility] [employer] 01-24-2023 13:14-0400 Respiratory rate 18 /min Helen Solis MD Work Phone: [facility] [employer] 01-24-2023 13:14-0400 SaO2% (BldA) [Mass fraction] 97 % Helen Solis MD Work Phone: [facility] [employer] 01-24-2023 13:14-0400 Systolic blood pressure 130 mm[Hg] Helen Solis MD Work Phone: [facility] [employer] 01-24-2023 12:30-0400 Body temperature 97.7 [degF] Helen Solis MD Work Phone: [facility] [employer] 01-24-2023 08:52-0400 Body mass index (BMI) [Ratio] 22.39 kg/m2 Helen Solis MD Work Phone: [facility] [employer] 01-24-2023 08:52-0400 Body weight 57.34 kg Helen Solis MD Work Phone: [facility] 01-17-2023 11:23-0400 Body height 160 cm Helen Solis MD Work Phone: [facility] 10-22-2021 11:30-0500 Body height 157.48 cm Dianna Clement Other [employer] Other 10-22-2021 11:30-0500 Body mass index (BMI) [Ratio] 24.18 kg/m2 Dianna Clement Other [employer] Other 10-22-2021 11:30-0500 Body temperature 98 [degF] Dianna Clement Other [employer] Other 10-22-2021 11:30-0500 Body weight 59.97 kg Dianna Clement Other [employer] Other 10-22-2021 11:30-0500 Diastolic blood pressure 75 mm[Hg] Dianna Clement Other [employer] Other 10-22-2021 11:30-0500 Respiratory rate 18 /min Dianna Clement Other [employer] Other 10-22-2021 11:30-0500 SaO2% (BldA) [Mass fraction] 99 % Dianna Clement Other [employer] Other 10-22-2021 11:30-0500 Systolic blood pressure 131 mm[Hg] Dianna Clement Other [employer] Other Encounters Encounter Date Encounter Type Care Provider Facility Start: 01-31-2024 End: 01-31-2024 ambulatory [facility] Work Phone: Start: 01-31-2024 End: 01-31-2024 Patient encounter procedure [facility] Work Phone: Start: 01-24-2023 End: 01-24-2023 ambulatory DIANNA CLEMENT [facility] Start: 01-24-2023 End: 01-24-2023 Subsequent hospital visit by physician Helen Solis MD Work Phone: [facility] Comment on above: S/P arthroscopy of l eft knee (Primary Dx) Start: 01-13-2023 End: 01-14-2023 ambulatory BURNS Collins [facility] Start: 01-13-2023 End: 01-14-2023 Encounter for other preprocedural examination [facility] Start: 01-13-2023 End: 01-13-2023 Subsequent hospital visit by physician Dianna Clement [employer] Work Phone: [facility] Start: 01-01-2022 End: 01-02-2022 Evaluation and management of inpatient DIANNA CLEMENT Facility:[facility] Start: 01-01-2022 Encounter for preprocedural laboratory examination DR ANDRIA JOYNER [facility] Start: 12-29-2021 End: 12-30-[address] ANDRIA JOYNER Facility:[facility] Start: 12-29-2021 End: 12-30-2021 Encounter for preprocedural laboratory examination DR ANDRIA JOYNER Facility:[facility] Start: 11-10-2021 End: 11-11-[address] ANDRIA JOYNER Facility:[facility] Start: 11-06-2021 Encounter for other preprocedural examination DR ANDRIA JOYNER [facility] Start: 11-02-2021 End: 11-03-[address] ANDRIA JOYNER Facility:[facility] Start: 11-02-2021 End: 11-03-2021 Encounter for other preprocedural examination DR ANDRIA JOYNER Facility:[facility] Start: 10-22-2021 End: 10-22-2021 ambulatory Dianna Clement Other [employer] Other Start: 10-22-2021 Office outpatient vi sit 15 minutes Dianna Clement [facility] Start: 10-20-2021 End: 10-20-[address] ANDRIA JOYNER Facility:[facility] Start: 07-01-2021 End: 07-02-2021 ambulatory YANDEL CHÁVEZ Facility:[facility] Start: 01-14-2021 End: 01-14-2021 Patient encounter procedure Dianna Clement Work Phone: [facility] Procedures Date Procedure Procedure Detail Performing Clinician Start: 01-13-2023 Basic metabolic pane l calcium total Helen Solis MD Work Phone: Start: 01-01-2022 Resection of Bilater al Fallopian Tubes, Open Approach DIANNA NIELSONAULT Start: 01-01-2022 Resection of Uterus, Open Approach DIANNA RACQUEL Start: 01-14-2021 Plain X-ray of right hip Dianna Nielsonault Work Phone: Start: 01-14-2021 X-ray of right knee Luke Clement Work Phone: Start: 01-14-2021 X-ray of lumbar spin e, four views Dianna Clement Work Phone: Plan of Treatment Date Care Activity Detail Author Start: 04-26-2023 Influenza vaccination Flu vacc ine (Season Ended) [facility] Start: 01-24-2023 End: 01-24-2023 Arthrs kne surg w/meniscectomy med/lat w/shvg KNEE ARTHROSCOPY Acute medial meniscus tear of left knee, initial encounter 01/24/2023 10:55 AM [facility] Start: 2022 Screening for malign ant neoplasm of colon [facility] Start: 2017 Lipid panel Lipids [facility] Start: 2007 Screening for malign ant neoplasm of cervix [facility] Start: 1998 Screening for malign ant neoplasm of cervix Pap smear [facility] Start: 01-07-1996 DTaP/Tdap/Td vaccine (1 - Tdap) DTaP/Tdap/Td vaccine (1 - Tdap) [facility] Start: 1995 Hepatitis C screening Hepatitis C sc reen [facility] Start: 01-07-1992 HIV screening HIV screen [facility] Start: 1989 Depression Screen Depression Screen [facility] Start: 1983 Pneumococcal 0-64 ye ars Vaccine (1 - PCV) Pneumococcal 0-64 years Vaccine (1 - PCV) [facility] Start: 1977 COVID-19 Vaccine (#1) COVID-19 Vacci ne (#1) [facility] End: 01-24-2023 INITIATE PACU OXYGEN THERAPY PROTOCOL Initiate PACU Oxygen Therapy Protocol Respiratory Care Routine Continuous until discontinued starting 01/24/2023 [facility] Comment on above: Continuous until dis continued starting 01/24/2023 [facility] Payers Date Payer Category Payer Medicaid [id number] 1975 Unknown [id number] 2.16.84 [id number] 1977 Unknown [id number] 2.16.84 [id number] 1977 Unknown [id number] 2.16.84 [id number] 1977 Unknown [id number] 2.16.84 [id number] 1977 Unknown [id number] 2.16.84 [id number] 1977 Unknown [id number] 2.16.84 [id number] 1977 Unknown [id number] 2.16.8 [id number] 1977 Unknown [id number] 2.16.8 [id number] 1959 Unknown [id number] Self-pay Self Pay [id number] Unknown Jeremy BC/BS [id number] Social History Date Type Detail Facility Tobacco smoking status NHIS Unknown if ever smoked [facility] Start: 1975 Sex Assigned At Female F [facility] Sex Assigned At Sex Assigned At Bir th [facility] Other Tobacco smoking status NHIS Tobacco smoking consumption unknown [facility] [employer] Phone: Start: 1975 Sex Assigned At Not on file [facility] [employer] Phone: Start: 01-17-2023 Tobacco smoking status NHIS Smokes tobacco daily [facility] [employer] Phone: History of tobacco use Cigarette Smoker [employer] Phone: Start: 01-17-2023 Tobacco use and exposure Smokeless tobacco non-user [employer] Phone: Start: 01-07-2023 End: 01-17-2023 Exposure to SARS-CoV-2 (event) Not sure [employer] Phone: Goals Date Patient Goal Desired Activity [...] day of surgery. documented in this encounter [facility] [employer] Phone: Hospital Discharge instructions 01-24-2023 Discharge Instructions Note Date & Type Note Facility 01-24-2023 Hospital Discharg e instructions Hilaria Raeves RN - 01/24/2023 12:40 PM EDT SAME [...] above. Excessive pain. 11. Call your surgeon [phone] for any questions regarding your surgery. 12. [...] as needed. documented in this encounter [employer] [employer] Phone: Discharge summary note 01-01-2022 Note Date [...] pain free and no longer on narcotics. [facility] Signed and Approved by: DR ANDRIA JOYNER . 02/08/2022 07:51:00 [facility] Clinical Note 01-01-2022 Note Date & Type Note Facility 01-01-2022 Note The [place], [place] NAME: BEENA RUANO DATE OF : MEDICAL REC#: [id number] MANAGER CRISIS: [address] [facility], TRANSADMIT DATE: 01/01/2022 09:56:00 [facility]LET LUBRIC[employer] M[employer]ER DATE: 01/02/2022 21:00 DICTATING PHYSICIAN: ANDRIA JOYNER DICTATION DATE: 01/01/2022 14:00 OPERATIVE NOTE PROCEDURE: Total abdominal hysterectomy, bilateral salpingectomy with cystoscopy. PREOPERATIVE DIAGNOSIS: 1. Large uterine fibroid. 2. Menorrhagia. 3. Dysmenorrhea. 4. Dyspareunia. POSTOPERATIVE DIAGNOSIS: 1. Large uterine fibroid. 2. Menorrhagia. 3. Dysmenorrhea. 4. Dyspareunia. ANESTHESIA: General. SURGEON: Andria Joyner D.O. TECHNICAL PROGRAMS MANAGER: ROSS Lea URINE OUTPUT: Yellow and clear. [...] good visualization of the bladder. An O'Gary- O-Óscar retractor was placed into the patient's abdomen. [...] Joyner DO on 01/12/2022 09:46 PM EDT [facility] Signed and Approved by: DR ANDRIA JOYNER . 01/12/2022 21:46:00 [facility] Evaluation note 10-22-2021 Note Date & Type [...] Sep, Costochondral chest pain (ICD-10 - R07.89) [employer] Other Evaluation note Note Date & Type Note Facility Evaluation note No Assessments Information Avail able [facility] Evaluation note Note Date & Type Note Facility Evaluation note Diagnosis S/P arthroscopy of left knee- Primary Other postprocedural status documented in this encounter [facility] [facility] [employer] Work Phone: Evaluation note Note Date & Type Note Facility Evaluation note Diagnosis Onset Date Rib pain on right side acute Viral URI with cough acute [facility] Work Phone: History general Narrative - Reported Note Date & Type Note Facility History general Narrative - Reported Type Medical History chronic hip pain Medical History lumbar pain Medical History legg Calves Perthe Disease Surgical History right hip Surgical History left eye x 2 Hospitalization History see above [employer] Other Summary Purpose Family History Relationship Condition Age at Onset Recorded Date/[place] Not Specified Hypertension Unknown Advance Directives Advance Directive Response Recorded Date/ Time Advance Directives No March 11 12:39pm Chief Complaint and Reason for Visit Chief Complaint cough/sore throat/pu lled a muscle Reason for Visit Rib pain on right si de Viral URI with cough Additional Source Comments INFORMATION SOURCE (unrecogn ized section and content) DATE CREATED AUTHOR 05/02/2019 [facility] DATE CREATED AUTHOR AUTHOR'S ORGANIZ ATION 11/14/2021 [facility] DATE CREATED AUTHOR AUTHOR'S ORGANIZ ATION 02/11/2022 [facility] DATE CREATED AUTHOR AUTHOR'S ORGANIZ ATION 01/26/2023 [facility] REASON FOR VISIT (unrecogniz ed section and content) Specialty Diagnoses / Procedures Referred By Lizabeth t Referred To Contact Diagnoses Acute medial meniscus tear of left knee, initial encounter TEAR OF MEDIAL MENISCUS LEFT KNEE S83.242A, 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 Procedures [place] ARTHRS KNE SURG W/MENISCECTOMY MED/LAT W/SHVG KNEE ARTHROSCOPY, MEDIAL MENISCUS, CHONDROPLASTY Helen Solis MD [address] [place] [address] [facility] [address] [place] [address] Referral ID Status Reason Start Date Expiration Date Visits Re quested Visits Authorized [id number] 1 1 Care Teams (unrecognized sec tion and content) Medical Assistant Ob Gyn Relationship Specialty Start Date End Date Dianna Clement APRN - [facility] [address] [place] [address] PCP - General 11/17/21 Medical Assistant Ob Gyn Relationship Specialty Start Date End Date Dianna Clement APRN - [facility] [address] [place] [address] PCP - General 11/17/21 Team Status: Active Member Role Status Dates NON STAFF Primary Care Provider Active Team Status: Inactive Member Role Status Dates Sagrario Blake APRN Attending Provider Active S tart: January 31, 2024 End: January 31, 2024 NON STAFF Primary Care Provider Active Start: January 31, 2024 End: January 31, 2024 Ordered Prescriptions (unrec ognized section and content) [...] Murillo RN)1055 (NoRateChange - Provider: DONELL Benson CRNA)1153 (Rate/Dose Change - Provider: DONELL Benson CRNA)1318 [...] Central Line = 20 mL/lumen, PACU only Goals (unrecognized section and content) Goals may be documented in a n alternate section FOR RECORDS PERTAINING TO PATIENTS WHO ARE [...] BE BASED ON THE PRIMARY CLINICAL RECORDS. [employer] [facility]. provides no warranty or guarantee of the accuracy or completeness of information in this document.
[2024-08-27 17:31] VITALS: BP 124/84; PULSE 68; TEMP 36.6; O2SAT 99; BMI 21.3
[2024-08-27 17:54] LABS: Internal Control Within Normal Limits; Strep A Antigen Screen Negative
--- NOTE | 2024-08-27 18:21 | ED_ITS ---
HPI HPI - General Adult General Chief complaint: Ear Stated complaint: ear pain/sore throat/fever Time Seen by Provider: 08/27/24 17:50 Source: patient Mode of arrival: walk-in Limitations: no limitations History of Present Illness HPI narrative: 49-year-old female presents to the emergency department for chief complaint of bilateral ear pain and sore throat that she has had for 3 days. She feels congested. She has pressure below her ears going into her throat. No vomiting diarrhea or fever. Related Data Previous Rx's ?Medication ?Instructions ?Recorded amoxicillin 500 mg capsule 500 mg PO TID 10 days #30 caps 08/27/24 cetirizine 5 mg-pseudoephedrine ER 1 tab PO Q12H PRN congestion #14 08/27/24 120 mg tablet,extended tabs release,12hr (Zyrtec-D) Allergies Allergy/AdvReac Type Severity Reaction Status Date / Time No Known Drug Allergies Allergy Verified 08/27/24 17:34 Opioid HPI Opioid Management Most Recent Opioid Data: No Data to Display Review of Systems ROS Narrative A ten point review of systems is negative except as noted above. Exam Narrative Exam Narrative: Nurses note and vital signs reviewed and patient is not hypoxic. General: The patient appears well and in no apparent distress. Patient is resting comfortably on cart. Skin: Warm, dry, no pallor noted. There is no rash noted. Head: Normocephalic, atraumatic Eye: Normal conjunctiva, no drainage Ears, Nose, Mouth, and Throat: oral mucosa is moist. Nares patent. Moderate amount of cerumen on the right. External canal appears normal. Left TM and external canal are normal. No pharyngeal exudate. Uvula midline. Cardiovascular: Regular Rate and Rhythm Respiratory: Patient is in no distress, no accessory muscle use, lungs are clear to auscultation, no wheezing, rales or rhonchi Back: non-tender GI: Soft and nontender Musculoskeletal: No joint Neurological: A&O, normal speech Psychiatric: Cooperative Constitutional Vital Signs, click to edit/add: Last Vital Signs Temp 97.8 F 08/27/24 17:31 Pulse 68 08/27/24 17:31 Resp 16 08/27/24 17:31 BP 124/84 08/27/24 17:31 Pulse Ox 99 08/27/24 17:31 O2 Del Method Room Air 08/27/24 17:31 Course Vital Signs Vital signs: Vital Signs Temperature 97.8 F 08/27/24 17:31 Pulse Rate 68 08/27/24 17:31 Respiratory Rate 16 08/27/24 17:31 Blood Pressure 124/84 08/27/24 17:31 Pulse Oximetry 99 08/27/24 17:31 Oxygen Delivery Method Room Air 08/27/24 17:31 Temperature 97.8 F 08/27/24 17:31 Pulse Rate 68 08/27/24 17:31 Respiratory Rate 16 08/27/24 17:31 Blood Pressure 124/84 08/27/24 17:31 Pulse Oximetry 99 08/27/24 17:31 Oxygen Delivery Method Room Air 08/27/24 17:31 Medical Decision Making MDM Narrative Medical decision making narrative: Strep test is negative. The patient is prescribed amoxicillin and Zyrtec-D. Treatment diagnosis and follow-up were discussed with the patient. Differential Diagnosis Differential Diagnosis: Otitis media, otitis externa, strep throat, sinusitis Lab Data Lab results reviewed: Yes I reviewed the patient's lab results Labs: Lab Results 08/27/24 Range/Units 17:40 Streptococcus Screen Negative Discharge Plan Discharge Chief Complaint: Ear Clinical Impression: Pharyngitis Patient Disposition: Home, Self-Care Time of Disposition Decision: 18:20 Condition: Good Mode of Transportation: Private Vehicle Prescriptions / Home Meds: New amoxicillin 500 mg capsule 500 mg PO TID 10 Days Qty: 30 0RF cetirizine-pseudoephedrine [Zyrtec-D] 5-120 mg tablet extended release 12 hr 1 tab PO Q12H PRN (Reason: congestion) Qty: 14 0RF Print Language: Bangladeshi Instructions: Pharyngitis (ED) Referrals: BILL CLEMENT [Primary Care Provider] - 1 week
[2024-08-27] MEDS: CETIRIZINE HCL 10 MG TABLET PO (18:32)
[2024-08-27] MEDS: AMOXICILLIN 500 MG CAPSULE PO (18:32)
[2024-08-27 18:38] VITALS: PULSE 94; O2SAT 93
== END 2024-08-27 18:33 | disposition home or self-care (01) ==
PROVIDERS: Emergency Provider Emergency Medicine; PCP Nurse Practitioner Family
DX: J02.9 Acute pharyngitis, unspecified (principal)
CPT/HCPCS: 87070; 87880; 99284

== ENCOUNTER 2025-02-20 15:11 | Emergency (ER) | payer MEDICAID, SELFPAY ==
[2025-02-20 15:20] VITALS: BP 120/92; PULSE 66; TEMP 36.6; O2SAT 96; BMI 22.1
--- NOTE | 2025-02-20 15:32 | XR_ITS ---
The [address] [address] Patient Name: CONNOR RUANO MRN: [id number] date: 1975 Sex: F Assigned Patient Location: ER Current Patient Location: ER Accession/Order Number: [id number] Exam Date: 02/20/2025 16:10 Report Date: 02/20/2025 16:10 At the request of: CACHORRO MCINTYRE Procedure: XR shoulder RT min 2V 3 views right shoulder plain film HISTORY: Right shoulder pain for 4 days COMPARISON: None ACUTE FINDINGS: None DEGENERATIVE CHANGE: Unremarkable SOFT TISSUE FINDINGS: Unremarkable JOINT EFFUSION: None POSTOP CHANGES: None BONY MINERALIZATION: Small proximal humerus sclerotic focus consistent with benign bony island. XR/XR shoulder RT min 2V IMPRESSION: No acute findings. Impression dictated by: Yariel Penaloza M.D. 02/20/2025 4:10 PM Dictation Location: [place] [address] Electronically authenticated by: [id number] Y Date: 02/20/2025 16:10
--- NOTE | 2025-02-20 15:32 | XR_ITS ---
The [address] [address] Patient Name: CONNOR RUANO MRN: [id number] date: 1975 Sex: F Assigned Patient Location: ER Current Patient Location: ER Accession/Order Number: [id number] Exam Date: 02/20/2025 16:09 Report Date: 02/20/2025 16:10 At the request of: CACHORRO MCINTYRE Procedure: XR ribs RT min 3V w CXR1V Right Rib series with Single View Chest HISTORY: Right rib and shoulder pain for 4 days COMPARISON: None MEDIASTINUM: Cardiac, mediastinal hilar silhouettes are within normal limits. LUNGS AND PLEURA: No acute lung process, pleural effusion or pneumothorax identified. ACUTE FINDINGS: No displaced rib fracture identified. DEGENERATIVE CHANGE: Unremarkable SOFT TISSUE: Unremarkable POSTOP CHANGES: None XR/XR ribs RT min 3V w CXR1V IMPRESSION: No displaced rib fracture. No acute chest findings. Impression dictated by: Yariel Penaloza M.D. 02/20/2025 4:10 PM Dictation Location: [facility] Electronically authenticated by: [id number] Y Date: 02/20/2025 16:10
--- NOTE | 2025-02-20 15:32 | ED.FALL1 ---
HPI HPI - Fall General Chief Complaint: Fall Stated Complaint: FALL, PAIN IN HEAD, SHOULDER ON R SIDE Time Seen by Provider: 02/20/25 15:26 Source: patient Mode of arrival: walk-in Limitations: no limitations History of Present Illness HPI Narrative: 50 year old female presents to the ED for pain to her right shoulder and right posterior rib area s/p fall today. States she lost her balance and struck her right shoulder on a door frame. She hit the top of her head. Denies LOC, vision changes, weakness, dizziness. Denies pain to her head, neck, back, hips. Denies N/T to her extremities. Denies saddle anesthesia. Denies change in bowel and/or bladder control. Related Data Allergies Allergy/AdvReac Type Severity Reaction Status Date / Time No Known Drug Allergies Allergy Verified 02/20/25 15:25 Opioid HPI Opioid Management Most Recent Pain and Opioid Data: Last Pain Scale 5 Today, 15:29 Review of Systems ROS Constitutional Denies: fever or chills Ears, nose, mouth, and throat Denies: throat pain or neck pain Cardiovascular Denies: chest pain Respiratory Denies: shortness of breath Gastrointestinal Denies: abdominal pain, nausea or vomiting Musculoskeletal Reports: back pain and extremity pain; Denies: neck pain Integumentary/Breast Denies: rash Neurological Denies: headache, numbness in extremities, weakness in extremities or dizziness PFSH PFSH Social History Little interest or pleasure in doing things: not at all Feeling down, depressed, or hopeless: not at all Exam Constitutional Vital Signs, click to edit/add: Last Vital Signs Temp 97.8 F 02/20/25 15:20 Pulse 66 02/20/25 15:20 Resp 18 02/20/25 15:20 BP 120/92 H 02/20/25 15:20 Pulse Ox 96 02/20/25 15:20 O2 Del Method Room Air 02/20/25 15:20 Common normals: no apparent distress and oriented x3 General appearance: cooperative [facility] Common normals: normocephalic, head/scalp atraumatic, external ears normal and moist oral mucous membranes Head and scalp: no Lopez's sign and no raccoon eyes Eye Common normals: PERRL, EOMs intact bilaterally, conjunctivae normal and no scleral icterus Neck & C-Spine Common normals: supple Cervical spine: no cervical spine tenderness and no paracervical muscle tenderness Chest Chest: symmetrical chest wall rise Cardio Common normals: regular rate and regular rhythm Peripheral pulses: radial pulses present Back & Pelvis Thoracic spine/upper back: normal to inspection and paraspinal muscle tenderness (Tenderness to right posterior rib area) Thoracic paraspinal muscle tenderness: right; no thoracic spinal tenderness Lumbar spine/lower back: normal to inspection; no lumbar spinal tenderness and no paraspinal muscle tenderness Extremity Other: Tenderness to right shoulder area. No obvious deformity. Full ROM noted. Distal sensation intact. Neuro Common normals: oriented x3, CN's II-XII intact bilaterally, moves all extremities and no focal motor deficits Sensorium/orientation: awake and alert Speech: speech normal Gait (neuro): normal gait Course Vital Signs Vital signs: Vital Signs Temperature 97.8 F 02/20/25 15:20 Pulse Rate 66 02/20/25 15:20 Respiratory Rate 18 02/20/25 15:20 Blood Pressure 120/92 H 02/20/25 15:20 Pulse Oximetry 96 02/20/25 15:20 Oxygen Delivery Method Room Air 02/20/25 15:20 Temperature 97.8 F 02/20/25 15:20 Pulse Rate 66 02/20/25 15:20 Respiratory Rate 18 02/20/25 15:20 Blood Pressure 120/92 H 02/20/25 15:20 Pulse Oximetry 96 02/20/25 15:20 Oxygen Delivery Method Room Air 02/20/25 15:20 MDM - Fall MDM Narrative Medical decision making narrative: X-rays of the right ribs/chest and right shoulder were completed. X-ray showed no acute findings. Findings were discussed with the patient. Follow up with pcp for a recheck, further evaluation and treatment. She prefers Tylenol and Aleve for pain which she has at home. Return to the ED for worsening symptoms. Differential Diagnosis Differential diagnosis: Likely dislocation of shoulder region and other (Shoulder sprain/strain, back strain, rib fracture) Medical Records Attestation: I reviewed the patient's medical records. Imaging Data XR: Attestation: I have reviewed the pertinent imaging results. Radiologist's impression: ITS Impressions Ribs X-Ray 02/20/25 15:32 IMPRESSION: No displaced rib fracture. No acute chest findings. Impression dictated by: Yariel Penaloza M.D. 02/20/2025 4:10 PM Dictation Location: [employer] Electronically authenticated by: [id number] Y Date: 02/20/2025 16:10 Shoulder X-Ray 02/20/25 15:32 IMPRESSION: No acute findings. Impression dictated by: Yariel Penaloza M.D. 02/20/2025 4:10 PM Dictation Location: [employer] Electronically authenticated by: [id number] Y Date: 02/20/2025 16:10 Discharge Plan Discharge Chief Complaint: Fall Clinical Impression: Fall, Acute shoulder pain, Back pain Patient Disposition: Home, Self-Care Time of Disposition Decision: 16:46 Condition: Good Mode of Transportation: Private Vehicle Print Language: Swedish Instructions: Back Pain (ED), Shoulder Pain (ED) Additional Instructions: Return to the ER for worsening symptoms. Referrals: BILL CLEMENT [Primary Care Provider, Unknown] - 1 week Discharge Date/Time: 02/20/25 16:50
== END 2025-02-20 16:50 | disposition home or self-care (01) ==
PROVIDERS: Emergency Provider Emergency Medicine; PCP Nurse Practitioner Family
DX: M25.511 Pain in right shoulder (principal); M54.9 Dorsalgia, unspecified
CPT/HCPCS: 71101; 73030; 99283